=== PATIENT | female | born 1930 | race Caucasian/White ===

== ENCOUNTER 2020-06-04 16:35 | Inpatient (IN) | payer OTHER ==
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
[2020-06-04] MEDS ORDERED: HALOPERIDOL LACTATE 5 MG/ML IM ONE (18:12)
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
[2020-06-04 18:31] LABS: BASO % 0.5 % (0-2.0); EOS % 0.9 % (0-4.5); HEMATOCRIT 40.9 % (32.4-45.2); HEMOGLOBIN 14.2 GM/dL (10.7-15.3); LYMPH % 19.3 % (8-40); MCHC 34.6 g/dl (32.0-36.0); MEAN CELL VOLUME 92.5 fl (80-96); MEAN PLT VOLUME 8.7 fl (7.5-11.1); MONO % 10.2 % (3.8-10.2); NEUT % 69.1 % (42.8-82.8); PLATELET COUNT 183 K/MM3 (134-434); RBC 4.42 M/mm3 (3.60-5.2); RDW 15.1 % (11.6-15.6)
[2020-06-04 18:39] LABS: ALBUMIN 3.8 g/dl (3.4-5.0); BILIRUBIN,TOTAL 2.2 mg/dL (0.2-1); BLOOD UREA NITROGEN 28.6 mg/dL (7-18); CALCIUM 11.1 mg/dL (8.5-10.1); CREATININE 1.1 mg/dL (0.55-1.3); POTASSIUM 3.8 mmol/L (3.5-5.1); TOT PROT 7.5 g/dl (6.4-8.2)
[2020-06-04 18:52] LABS: EPI CELLS 4 /uL (0-25.1); HYALINE CASTS 0 /uL (0-3.1); PH,URINE 5.5 (5.0-8.0); URINE APPEARANCE CLEAR; URINE BILIRUBIN NEGATIVE (NEGATIVE); URINE COLOR YELLOW; URINE GLUCOSE (UA) NEGATIVE (NEGATIVE); URINE KETONE NEGATIVE (NEGATIVE); URINE LEUK ESTERASE TRACE (NEGATIVE); URINE NITRITE NEGATIVE (NEGATIVE); URINE PROTEIN 2+ (NEGATIVE); URINE RBC 5 /uL (0-23.9); URINE WBC 11 /uL (0-25.8)
[2020-06-04] MEDS ORDERED: CEFTRIAXONE 1,000 MG in DEXTROSE 5%-WATER - 50 ML IVPB ONE (18:52)
[2020-06-04] MEDS ORDERED: CEFTRIAXONE 1 GM/50 ML BAG ONE (18:55)
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
[2020-06-04] MEDS ORDERED: SODIUM CHLORIDE 1,000 ML IV SCH (20:45)
[2020-06-04 21:11] LABS: BILIRUBIN,DIRECT 0.4 mg/dL (0.0-0.2)
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
[2020-06-04] MEDS: MEMANTINE HCL 5 MG TABLET (UD) PO SCH (22:08)
[2020-06-04] MEDS: hydrALAZINE HCL 10 MG TABLET PO SCH (22:08)
[2020-06-04] MEDS: amLODIPine BESYLATE 10 MG TABLET (FP) PO SCH (22:08)
[2020-06-05] MEDS ORDERED: LEVOTHYROXINE NA 112 MCG TABLET (FP) PO SCH (07:00)
[2020-06-05 07:14] LABS: HEMATOCRIT 40.2 % (32.4-45.2); MCH 32.2 pg (25.7-33.7); MCHC 34.8 g/dl (32.0-36.0); MEAN CELL VOLUME 92.7 fl (80-96); MEAN PLT VOLUME 8.5 fl (7.5-11.1); PLATELET COUNT 172 K/MM3 (134-434); RBC 4.34 M/mm3 (3.60-5.2); RDW 14.8 % (11.6-15.6); WHITE BLOOD COUNT 5.5 K/mm3 (4.0-10.0)
[2020-06-05 07:47] LABS: ALBUMIN 3.3 g/dl (3.4-5.0); BILIRUBIN,TOTAL 1.8 mg/dL (0.2-1); BLOOD UREA NITROGEN 22.6 mg/dL (7-18); CALCIUM 10.3 mg/dL (8.5-10.1); CREATININE 0.9 mg/dL (0.55-1.3); PHOSPHOROUS 2.9 mg/dL (2.5-4.9); POTASSIUM 3.6 mmol/L (3.5-5.1); TOT PROT 6.8 g/dl (6.4-8.2)
[2020-06-05] MEDS ORDERED: cefTRIAXone SODIUM 1 GM VIAL ONE (10:00)
[2020-06-05] MEDS ORDERED: DEXTROSE 5%-WATER - 50 ML IVPB ONE (10:00)
--- NOTE | 2020-06-05 10:04 | EKG ---
Test Reason : Blood Pressure : / mmHG Vent. Rate : 084 BPM Atrial Rate : 082 BPM P-R Int : 000 ms QRS Dur : 088 ms QT Int : 366 ms P-R-T Axes : 000 -12 003 degrees QTc Int : 432 ms ATRIAL FIBRILLATION WITH PREMATURE VENTRICULAR OR ABERRANTLY CONDUCTED COMPLEXES CANNOT RULE OUT ANTEROSEPTAL INFARCT , AGE UNDETERMINED NONSPECIFIC ST ABNORMALITY ABNORMAL ECG Confirmed by MD TRACY, PALMER ([id number]) on 06/05/2020 10:04:01 AM Referred By: Confirmed By:PALMER MOLINA MD
[2020-06-05] MEDS: ENOXAPARIN NA (PORCINE) 40 MG/0.4 ML DISP.SYRIN SQ SCH (10:21)
[2020-06-05] MEDS: POTASSIUM CHLORIDE TABS 10 MEQ TABLET.ER (FP) PO SCH (10:22)
[2020-06-05] MEDS: amLODIPine BESYLATE 10 MG TABLET (FP) PO SCH (10:22)
--- NOTE | 2020-06-05 10:53 | EKG ---
Test Reason : Blood Pressure : / mmHG Vent. Rate : 057 BPM Atrial Rate : 063 BPM P-R Int : 000 ms QRS Dur : 090 ms QT Int : 442 ms P-R-T Axes : 000 -19 021 degrees QTc Int : 430 ms ATRIAL FIBRILLATION WITH SLOW VENTRICULAR RESPONSE LEFTWARD AXIS SEPTAL INFARCT (CITED ON OR BEFORE 04-JUN-2020) NONSPECIFIC ST ABNORMALITY ABNORMAL ECG Confirmed by MD TRACY, PALMER ([id number]) on 06/05/2020 10:53:19 AM Referred By: Kylee ROSAS Confirmed By:PALMER MOLINA MD
[2020-06-05 11:41] LABS: N-TERMINAL BNP 3642.7 pg/ml (5-450)
[2020-06-05 12:22] LABS: COCAINE, UR NEGATIVE ng/ml (CUTOFF=300); METHADONE, UR NEGATIVE ng/ml (CUTOFF=300); OPIATES, URI NEGATIVE ng/ml (CUTOFF=300); PHENCYCLIDINE,URINE NEGATIVE ng/ml (CUTOFF=25); URINE AMPHETAMINES NEGATIVE ng/ml (CUTOFF=500); URINE BARBITURATES NEGATIVE ng/ml (CUTOFF=200); URINE BENZODIAZEPINES NEGATIVE ng/ml (CUTOFF=200)
[2020-06-05] MEDS ORDERED: PT OWN MED DRAWER 7, Y5N ONE ×2 (12:33→20:38)
[2020-06-05] MEDS: CEFTRIAXONE 1 GM in DEXTROSE 5%-WATER - 50 ML IVPB SCH (12:37)
[2020-06-05] MEDS: hydrALAZINE HCL 10 MG TABLET PO SCH ×2 (12:37→21:11)
--- NOTE | 2020-06-05 12:52 | ECHO ---
Version: 1 Name: JOSE ELIAS BHATTI Exam: Adult Echocardiogram Study Date: 06/05/2020, 11:41 AM Age: 89 Years MMode/2D Measurements & Calculations IVSd: 1.19 cm LVIDs: 2.48 cm LVIDd: 3.9 cm LVPWd: 1.04 cm LAV (MOD-bp): 84.0 ml LVOT diam: 1.98 cm Ao root diam: 3.0 cm LA dimension: 4.6 cm Doppler Measurements & Calculations Lat Peak E' Ross: 8.3 cm/sec Med Peak E' Ross: 6.0 cm/sec MR max P.0 mmHg Ao max P.8 mmHg Ao V2 max: 98.0 cm/sec AI P1/2t: 568.3 msec PI end-d ross: 119.4 cm/sec TR max ross: 327.6 cm/sec TR max P.0 mmHg Left Ventricle There is mild concentric left ventricular hypertrophy. Left ventricular systolic function is grossly normal. Ejection Fraction = 55%. The transmitral spectral Doppler flow pattern is suggestive of impaired LV relaxation. Right Ventricle Borderline right ventricular enlargement. The right ventricular systolic function is normal. Atria The left atrium is moderately dilated. The right atrium is moderately dilated. Mitral Valve There is mild mitral valve thickening. There is moderate mitral regurgitation. Tricuspid Valve The tricuspid valve is not well visualized, but is grossly normal. There is moderate to severe tricu spid regurgitation. Right ventricular systolic pressure is elevated at 50-60mmHg. There is moderate pulmo nary hypertension. Aortic Valve There is moderate aortic valve thickening. No hemodynamically significant valvular aortic stenosis. Mild to moderate aortic regurgitation. Pulmonic Valve The pulmonic valve is not well visualized. Great Vessels The aortic root is normal size. Pericardium/Pleura There is no pericardial effusion. Summary Statements There is mild concentric left ventricular hypertrophy. Left ventricular systolic function is grossly normal. Ejection Fraction = 55%. Borderline right ventricular enlargement. The right ventricular systolic function is normal. The left atrium is moderately dilated. The right atrium is moderately dilated. There is mild mitral valve thickening. There is moderate mitral regurgitation. There is moderate aortic valve thickening. Mild to moderate aortic regurgitation. The tricuspid valve is not well visualized, but is grossly normal. There is moderate to severe tricu spid regurgitation. There is moderate pulmonary hypertension. Right ventricular systolic pressure is elevated at 50-60mm Hg. MD Krista Mccoy06/05/2020, 12:52 PM Ordering Physician: Liban Gamino Performed By: Melissa Arguello
[2020-06-05] MEDS ORDERED: HALOPERIDOL 2 MG TABLET PO ONE (15:00)
--- NOTE | 2020-06-05 15:13 | CON.PSY ---
Psychiatry Consult Chief Complaint: 89 year old female with Dementia Alz admitted with AMS and for? COVID. Patient seen chin barnes agitation, getting out opf Bed and wants to go HOMe. Symptoms: reports: Memory Impairment, Restlessness, Impulsivity - Previous Psychiatric Treatment Outpatient: None Inpatient: None - Previous Substance Abuse Treatment Outpatient: None Inpatient: None - Current Medications Current Medications: Active Medications Amlodipine Besylate (Norvasc -) 10 mg PO DAILY [facility] Last Admin: 06/05/20 10:22 Dose: 10 mg Documented by: Enoxaparin Sodium (Lovenox -) 40 mg SQ DAILY [facility] Last Admin: 06/05/20 10:21 Dose: 40 mg Documented by: Hydralazine HCl (Apresoline -) 10 mg PO BID [facility] Last Admin: 06/05/20 12:37 Dose: 10 mg Documented by: Ceftriaxone Sodium 1 gm/ (Dextrose) 50 mls @ 100 mls/hr IVPB DAILY [facility]; Protocol Last Admin: 06/05/20 12:37 Dose: 100 mls/hr Documented by: Levothyroxine Sodium (Synthroid -) 112 mcg PO DAILY@0700 [facility] Last Admin: 06/05/20 06:08 Dose: 112 mcg Documented by: Memantine (Namenda -) 5 mg PO HS [facility] Last Admin: 06/04/20 22:08 Dose: 5 mg Documented by: Metoprolol Succinate (Toprol Xl -) 50 mg PO BID [facility] Last Admin: 06/05/20 10:22 Dose: 50 mg Documented by: Potassium Chloride (K-Dur -) 10 meq PO DAILY [facility] Last Admin: 06/05/20 10:22 Dose: 10 meq Documented by: - Allergies Allergies: Allergies Allergy/AdvReac Type Severity Reaction Status Date / Time No Known Allergies Allergy Verified 06/04/20 18:34 - Current Living Status Usual Living Arrangement: With Significant Other - Current Mental Status Evaluation Appearance: Disheveled Attitude: Guarded - Affect Affect: Constrictive Appropriateness: Not Appropriate - Mood Mood: Irritable - Speech/Language Expressive: Delayed - Psychomotor Activity Psychomotor Activity: Hyperactive - Thought Process Thought Process: Circumstantial - Thought Content Hallucinations: Absent Delusions: Absent - Self Perception Self Perception: Depersonalization - Cognition Attention: Diminished Memory, Immediate Recall: Impaired Memory, Remote: Impaired - Concentration Serial Sevens Intact: No Simple Calculations Intact: No - Abstraction Proverb Interpretation: Impaired Judgement: Moderately Impaired - Insight Insight: Impaired - Impulse Control Impulse Control: Moderately Impaired - Suicidal Ideation Suicidal Ideation: No - Homicidal Ideation Homicidal Ideation: No Assessment/Plan 1) zyprexa2.5 mg po bid for agitation and aggression.
[2020-06-05] MEDS ORDERED: OLANZapine 2.5 MG TABLET PO ONE (16:45)
--- NOTE | 2020-06-05 17:56 | PN ---
Teaching Attending Note Name of Resident: Liban Gamino ATTENDING PHYSICIAN STATEMENT I saw and evaluated the patient. I reviewed the resident's note and discussed the case with the resident. I agree with the resident's findings and plan as documented. SUBJECTIVE: No complaints. OBJECTIVE: Afebrile, Hemodynamically Stable. AAO x 1. Last Vital Signs Temp Pulse Resp BP Pulse Ox 99.4 F 72 20 142/68 97 06/05/20 17:02 06/05/20 17:02 06/05/20 17:02 06/05/20 17:02 06/05/20 09:00 HEENT - Atraumatic, normocephalic. Heart - S1, S2, irregular. lungs - clear to auscultation Abdomen - Soft, non-tender. Bowel Sounds normal Extremities - no edema, no calf tenderness Neuro - AAO x 1. Moving all 4 extremities. Laboratory Results - last 24 hr 06/04/20 06/04/20 06/04/20 17:43 17:43 17:43 WBC 6.0 RBC 4.42 Hgb 14.2 Hct 40.9 MCV 92.5 MCH 32.0 MCHC 34.6 RDW 15.1 Plt Count 183 MPV 8.7 Absolute Neuts (auto) 4.2 Neutrophils % 69.1 Lymphocytes % 19.3 Monocytes % 10.2 Eosinophils % 0.9 Basophils % 0.5 Nucleated RBC % 0 Sodium 142 Potassium 3.8 Chloride 111 H Carbon Dioxide 21 Anion Gap 10 BUN 28.6 H Creatinine 1.1 Est GFR (CKD-EPI)AfAm 51.55 Est GFR (CKD-EPI)NonAf 44.48 Random Glucose 96 Calcium 11.1 H Phosphorus Magnesium Total Bilirubin 2.2 H Direct Bilirubin 0.4 H AST 27 ALT 16 Alkaline Phosphatase 145 H Creatine Kinase 110 Troponin I < 0.02 B-Natriuretic Peptide Total Protein 7.5 Albumin 3.8 Vitamin B12 TSH 28.90 H Free T4 1.28 Thyroxine (T4) Urine Color Urine Appearance Urine pH Ur Specific [place] Urine Protein Urine Glucose (UA) Urine Ketones Urine Blood Urine Nitrite Urine Bilirubin Urine Urobilinogen Ur Leukocyte Esterase Urine WBC (Auto) Urine RBC (Auto) Urine Casts (Auto) U Epithel Cells (Auto) Urine Bacteria (Auto) Ur Random Creatinine U Random Total Protein Protein/Creatinin Ratio Opiates Screen Methadone Screen Barbiturate Screen Phencyclidine Screen Ur Amphetamines Screen MDMA (Ecstasy) Screen Benzodiazepines Screen Cocaine Screen U Marijuana (THC) Screen 06/04/20 06/05/20 06/05/20 18:30 06:42 06:42 WBC 5.5 RBC 4.34 Hgb 14.0 Hct 40.2 MCV 92.7 MCH 32.2 MCHC 34.8 RDW 14.8 Plt Count 172 MPV 8.5 Absolute Neuts (auto) Neutrophils % Lymphocytes % Monocytes % Eosinophils % Basophils % Nucleated RBC % Sodium 143 Potassium 3.6 Chloride 114 H Carbon Dioxide 21 Anion Gap 9 BUN 22.6 H Creatinine 0.9 Est GFR (CKD-EPI)AfAm 65.70 Est GFR (CKD-EPI)NonAf 56.69 Random Glucose 92 Calcium 10.3 H Phosphorus 2.9 Magnesium 2.0 Total Bilirubin 1.8 H Direct Bilirubin AST 25 ALT 15 Alkaline Phosphatase 137 H Creatine Kinase Troponin I B-Natriuretic Peptide 3642.7 H Total Protein 6.8 Albumin 3.3 L Vitamin B12 482 TSH 52.30 H Free T4 Thyroxine (T4) 11.2 Urine Color Yellow Urine Appearance Clear Urine pH 5.5 Ur Specific [place] 1.012 Urine Protein 2+ H Urine Glucose (UA) Negative Urine Ketones Negative Urine Blood Negative Urine Nitrite Negative Urine Bilirubin Negative Urine Urobilinogen 1.0 Ur Leukocyte Esterase Trace Urine WBC (Auto) 11 Urine RBC (Auto) 5 Urine Casts (Auto) 0 U Epithel Cells (Auto) 4 Urine Bacteria (Auto) >10,000 Ur Random Creatinine U Random Total Protein Protein/Creatinin Ratio Opiates Screen Methadone Screen Barbiturate Screen Phencyclidine Screen Ur Amphetamines Screen MDMA (Ecstasy) Screen Benzodiazepines Screen Cocaine Screen U Marijuana (THC) Screen 06/05/20 06/05/20 10:25 10:25 WBC RBC Hgb Hct MCV MCH MCHC RDW Plt Count MPV Absolute Neuts (auto) Neutrophils % Lymphocytes % Monocytes % Eosinophils % Basophils % Nucleated RBC % Sodium Potassium Chloride Carbon Dioxide Anion Gap BUN Creatinine Est GFR (CKD-EPI)AfAm Est GFR (CKD-EPI)NonAf Random Glucose Calcium Phosphorus Magnesium Total Bilirubin Direct Bilirubin AST ALT Alkaline Phosphatase Creatine Kinase Troponin I B-Natriuretic Peptide Total Protein Albumin Vitamin B12 TSH Free T4 Thyroxine (T4) Urine Color Urine Appearance Urine pH Ur Specific [place] Urine Protein Urine Glucose (UA) Urine Ketones Urine Blood Urine Nitrite Urine Bilirubin Urine Urobilinogen Ur Leukocyte Esterase Urine WBC (Auto) Urine RBC (Auto) Urine Casts (Auto) U Epithel Cells (Auto) Urine Bacteria (Auto) Ur Random Creatinine 14.0 L U Random Total Protein 29.2 H Protein/Creatinin Ratio 2.1 Opiates Screen Negative Methadone Screen Negative Barbiturate Screen Negative Phencyclidine Screen Negative Ur Amphetamines Screen Negative MDMA (Ecstasy) Screen Negative Benzodiazepines Screen Negative Cocaine Screen Negative U Marijuana (THC) Screen Negative Current Medications Generic Name Dose Route Start Last Admin Trade Name Freq PRN Reason Stop Dose Admin Amlodipine Besylate 10 mg 06/04/20 20:45 06/05/20 10:22 Norvasc - PO 10 mg DAILY DENISE Administration Enoxaparin Sodium 40 mg 06/05/20 10:00 06/05/20 10:21 Lovenox - SQ 40 mg DAILY DENISE Administration Hydralazine HCl 10 mg 06/04/20 22:00 06/05/20 12:37 Apresoline - PO 10 mg BID DENISE Administration Ceftriaxone Sodium 1 gm/ 50 mls @ 100 mls/hr 06/05/20 10:00 06/05/20 12:37 Dextrose IVPB 100 mls/hr DAILY DENISE Administration Protocol Levothyroxine Sodium 125 mcg 06/05/20 17:49 Synthroid - PO DAILY@0700 DENISE Memantine 5 mg 06/04/20 22:00 06/04/20 22:08 Namenda - PO 5 mg HS DENISE Administration Metoprolol Succinate 50 mg 06/04/20 22:00 06/05/20 10:22 Toprol Xl - PO 50 mg BID DENISE Administration Olanzapine 2.5 mg 06/05/20 22:00 Zyprexa - PO BID DENISE Potassium Chloride 10 meq 06/05/20 10:00 06/05/20 10:22 K-Dur - PO 10 meq DAILY DENISE Administration Home Medications Medication Instructions Recorded Amlodipine Besylate 10 mg PO DAILY 06/04/20 Hydralazine HCl 10 mg PO BID 06/04/20 Levothyroxine [Synthroid -] 112 mcg PO DAILY 06/04/20 Memantine HCl 5 mg PO HS 06/04/20 Metoprolol Succinate 50 mg PO BID 06/04/20 Potassium Chloride 10 meq PO DAILY 06/04/20 ASSESSMENT AND PLAN: 89 year old female with a history of Atrial Fibrillation, HTN, Hypothyroidism, Dementia, brought to ED by family members with increasing confusion, aggression, falls. 1. Acute Metabolic Encephalopathy atop baseline Dementia with behavioral disturbance ?progression of her Dementia vs UTI. Required Haldol on admission. Empirically treated for UTI with Ceftriaxone pending Urine Cx result. IV hydration stopped, eating/drinking adequately. Evaluated by Psychiatry - started on Zyprexa. Namenda resumed. 2. Hypothyrosidism - TSH 52 ?compliance with Synthroid. Collateral history from family members required. 3. HTN - Continue Norvasc, Hydralazine, Toprol XL 4. Atrial fibrillation, rate controlled. Continue Toprol XL. Not on AC secondary to falls. 5. Cardiomegaly and increased bilateral interstitial markings. BNP elevated at 3642. Clinically no evidence of decompensated CHF. Echo and Cardio consult requested for medication optimization. 6. Cerebrovascular Disease - Chronic Infarcts on CT Head. No evidence of acute infarct or focal neurological signs. Will start Aspirin. Will hold off Statin due to advanced age, underlying dementia, and muscle weakness/recurrent falls. DVT Px - Lovenox SQ.
[2020-06-05] MEDS ORDERED: LORazepam 2 MG/ML SDV VIAL IM ONE (18:15)
[2020-06-05] MEDS ORDERED: LORazepam 2 MG/ML SDV VIAL IM PRN (18:15)
--- NOTE | 2020-06-05 19:42 | PN ---
Physical Exam: SUBJECTIVE: Patient seen and examined at bedside in the morning. The patient was A&O x 0 and confused, talking about spaghetti, and when examined a little later was A&O x 1 (only to place) and still confused. The patient's nephew, Mike Kong, was contacted at , and her medications was rechecked. The nephew explains that the patient takes her mediations regularly, only missing a dose once or twice a week. Due to her symptoms, the family held the patient's Memantine for a week as they thought that it was causing her altered mental status. OBJECTIVE: Vital Signs Period Temp Pulse Resp BP Sys/Gaona Pulse Ox Last 24 Hr 97.3 F-99.4 F 60-88 20-20 138-163/68-93 97-98 GENERAL: The patient is A&Ox0 and confused, in no acute distress. HEAD: Normal with no signs of trauma. EYES: Extraocular movements intact. No ptosis. ENT: Ears normal, nares patent, oropharynx clear without exudates, moist mucous membranes. NECK: Trachea midline, full range of motion, supple. LUNGS: Breath sounds equal, clear to auscultation bilaterally, no wheezes, no crackles, no accessory muscle use. HEART: Irregular rhythm. S1, S2. ABDOMEN: Soft, nontender, nondistended, normoactive bowel sounds, no guarding, no rebound, no masses. EXTREMITIES: 2+ pulses, warm, well-perfused, no edema. NEUROLOGICAL: Normal speech, gait not observed. PSYCH: Confused. SKIN: Warm, dry, normal turgor, no rashes or lesions noted Laboratory Results - last 24 hr 06/04/20 06/04/20 06/05/20 17:43 17:43 06:42 WBC 5.5 RBC 4.34 Hgb 14.0 Hct 40.2 MCV 92.7 MCH 32.2 MCHC 34.8 RDW 14.8 Plt Count 172 MPV 8.5 Sodium 142 Potassium 3.8 Chloride 111 H Carbon Dioxide 21 Anion Gap 10 BUN 28.6 H Creatinine 1.1 Est GFR (CKD-EPI)AfAm 51.55 Est GFR (CKD-EPI)NonAf 44.48 Random Glucose 96 Calcium 11.1 H Phosphorus Magnesium Total Bilirubin 2.2 H Direct Bilirubin 0.4 H AST 27 ALT 16 Alkaline Phosphatase 145 H Creatine Kinase 110 Troponin I < 0.02 B-Natriuretic Peptide Total Protein 7.5 Albumin 3.8 Vitamin B12 TSH 28.90 H Free T4 1.28 Thyroxine (T4) Ur Random Creatinine U Random Total Protein Protein/Creatinin Ratio Opiates Screen Methadone Screen Barbiturate Screen Phencyclidine Screen Ur Amphetamines Screen MDMA (Ecstasy) Screen Benzodiazepines Screen Cocaine Screen U Marijuana (THC) Screen 06/05/20 06/05/20 06/05/20 06:42 10:25 10:25 WBC RBC Hgb Hct MCV MCH MCHC RDW Plt Count MPV Sodium 143 Potassium 3.6 Chloride 114 H Carbon Dioxide 21 Anion Gap 9 BUN 22.6 H Creatinine 0.9 Est GFR (CKD-EPI)AfAm 65.70 Est GFR (CKD-EPI)NonAf 56.69 Random Glucose 92 Calcium 10.3 H Phosphorus 2.9 Magnesium 2.0 Total Bilirubin 1.8 H Direct Bilirubin AST 25 ALT 15 Alkaline Phosphatase 137 H Creatine Kinase Troponin I B-Natriuretic Peptide 3642.7 H Total Protein 6.8 Albumin 3.3 L Vitamin B12 482 TSH 52.30 H Free T4 Thyroxine (T4) 11.2 Ur Random Creatinine 14.0 L U Random Total Protein 29.2 H Protein/Creatinin Ratio 2.1 Opiates Screen Negative Methadone Screen Negative Barbiturate Screen Negative Phencyclidine Screen Negative Ur Amphetamines Screen Negative MDMA (Ecstasy) Screen Negative Benzodiazepines Screen Negative Cocaine Screen Negative U Marijuana (THC) Screen Negative Active Medications Generic Name Dose Route Start Last Admin Trade Name Freq PRN Reason Stop Dose Admin Amlodipine Besylate 10 mg 06/04/20 20:45 06/05/20 10:22 Norvasc - PO 10 mg DAILY DENISE Administration Aspirin 81 mg 06/06/20 10:00 Asa - PO DAILY DENISE Enoxaparin Sodium 40 mg 06/05/20 10:00 06/05/20 10:21 Lovenox - SQ 40 mg DAILY DENISE Administration Hydralazine HCl 10 mg 06/04/20 22:00 06/05/20 12:37 Apresoline - PO 10 mg BID DENISE Administration Ceftriaxone Sodium 1 gm/ 50 mls @ 100 mls/hr 06/05/20 10:00 06/05/20 12:37 Dextrose IVPB 100 mls/hr DAILY DENISE Administration Protocol Levothyroxine Sodium 125 mcg 06/05/20 17:49 Synthroid - PO DAILY@0700 DENISE Lorazepam 1 mg 06/05/20 18:15 Ativan Injection - IM Q12H PRN AGITATION Memantine 5 mg 06/04/20 22:00 06/04/20 22:08 Namenda - PO 5 mg HS DENISE Administration Metoprolol Succinate 50 mg 06/04/20 22:00 06/05/20 10:22 Toprol Xl - PO 50 mg BID DENISE Administration Olanzapine 2.5 mg 06/05/20 22:00 Zyprexa - PO BID DENISE Potassium Chloride 10 meq 06/05/20 10:00 06/05/20 10:22 K-Dur - PO 10 meq DAILY DENISE Administration ASSESSMENT/PLAN: 89 year old female patient with past medical history of AFib, Hypothyroidism, HTN, Dementia, who presented to the ED with acute metabolic encephalopathy secondary to UTI vs. Other etiology 1. Acute Metabolic Encephalopathy secondary to UTI vs. Hypothyroidism vs NPH - The patient was A&Ox0 and confused. - Urinalysis showed > 10,000 bacteria - TSH was 52.3 - The patient has a history of falls, urinary incontinence, and dementia - Toxicology negative - Psychology started the patient on Zyprexa - Chronic infarcts on CT Head. The patient is taking aspirin. 2. Hypothyroidism - TSH of 52.3 - The patient's dose of levothyroxine was increased from 112mg to 125mg 3. UTI - Urinalysis showed > 10,000 bacteria. Urine Culture pending. - The patient is taking Ceftriaxone 4. Cardiomegaly, possibly CHF - Cardiomegaly on CXR - EF is 55% from the ECHO today 5. AFib - AFib is a risk factor for cognitive decline and dementia per pubmed - ECG showed AFib - Irregular pulse on exam - The patient is taking Metoprolol 6. r/o NPH - The patient has a history of falls, urinary incontinence, and dementia - CT of the Head did not show signs of NPH 7. HTN - The patient is taking Hydralazine, Amlodipine, and Metoprolol - The patient's blood pressure has been 152-138 systolic / 80 - 68 diastolic # FEN - The patient is on a Low Sodium Diet. Monitoring Electrolytes. DVT Px - Lovenox Sq Visit type - Emergency Visit Emergency Visit: Yes ED Registration Date: 06/04/20 Care time: The patient presented to the Emergency Department on the above date and was hospitalized for further evaluation of their emergent condition. - New Patient This patient is new to me today: Yes Date on this admission: 06/05/20 - Critical Care Critical Care patient: No - Discharge Referral Referred to [facility] Med P.C.: No ATTENDING PHYSICIAN STATEMENT I saw and evaluated the patient. I reviewed the resident's note and discussed the case with the resident. I agree with the resident's findings and plan as documented. SUBJECTIVE: OBJECTIVE: ASSESSMENT AND PLAN:
[2020-06-05] MEDS: OLANZapine 2.5 MG TABLET PO SCH (21:11)
[2020-06-05] MEDS: MEMANTINE HCL 5 MG TABLET (UD) PO SCH (21:11)
[2020-06-06] MEDS: LEVOTHYROXINE NA 125 MCG TABLET (FP) PO SCH (06:17)
[2020-06-06 07:18] LABS: HEMATOCRIT 43.9 % (32.4-45.2); HEMOGLOBIN 14.9 GM/dL (10.7-15.3); MCH 31.5 pg (25.7-33.7); MEAN CELL VOLUME 92.6 fl (80-96); MEAN PLT VOLUME 8.3 fl (7.5-11.1); PLATELET COUNT 209 K/MM3 (134-434); RBC 4.74 M/mm3 (3.60-5.2); RDW 15.1 % (11.6-15.6); WHITE BLOOD COUNT 6.9 K/mm3 (4.0-10.0)
[2020-06-06 07:46] LABS: BLOOD UREA NITROGEN 23.1 mg/dL (7-18); CREATININE 1.1 mg/dL (0.55-1.3); MAGNESIUM 2.3 mg/dL (1.8-2.4); PHOSPHOROUS 2.9 mg/dL (2.5-4.9); POTASSIUM 3.4 mmol/L (3.5-5.1)
--- NOTE | 2020-06-06 09:06 | CON.CARD ---
Consult Consult Specialty:: Cardiology Referred by:: Rogelio Reason for Consultation:: Atrial fibrillation. Mild pulmonary congestion. - History of Present Illness Chief Complaint: Mental status changes History of Present Illness: The patient is an 89-year-old female with significant dementia, hypertension, hyperlipidemia, chronic atrial fibrillation, now admitted with mental status changes and likely urinary tract infection on antibiotics. The patient is confused. Unable to hold a conversation. Not following commands. She is in no apparent distress. 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 Cardio/Vascular: Yes: AFIB, CHF, HTN - Smoking History Smoking history: Unknown if ever smoked - Social History Usual Living Arrangement: With Significant Other Home Medications - Allergies Allergies/Adverse Reactions: Allergies Allergy/AdvReac Type Severity Reaction Status Date / Time No Known Allergies Allergy Verified 06/04/20 18:34 - Home Medications Home Medications: Ambulatory Orders Amlodipine Besylate 10 mg PO DAILY 06/04/20 Hydralazine HCl 10 mg PO BID 06/04/20 Levothyroxine [Synthroid -] 112 mcg PO DAILY 06/04/20 Memantine HCl 5 mg PO HS 06/04/20 Metoprolol Succinate 50 mg PO BID 06/04/20 Potassium Chloride 10 meq PO DAILY 06/04/20 Review of Systems - Review of Systems Constitutional: reports: No Symptoms Eyes: reports: No Symptoms HENT: reports: No Symptoms Neck: reports: No Symptoms Cardiovascular: reports: No Symptoms Respiratory: reports: No Symptoms Gastrointestinal: reports: No Symptoms Genitourinary: reports: Dysuria Breasts: reports: No Symptoms Reported Musculoskeletal: reports: No Symptoms Integumentary: reports: No Symptoms Neurological: reports: Change in LOC, Confusion Endocrine: reports: No Symptoms Hematology/Lymphatic: reports: No Symptoms Psychiatric: reports: No Symptoms Vital Signs: Vital Signs Temperature 97.4 F L 06/06/20 06:00 Pulse Rate 65 06/05/20 19:32 Respiratory Rate 06/06/20 06:00 Blood Pressure 140/101 H 06/06/20 06:00 O2 Sat by Pulse Oximetry (%) 97 06/05/20 20:10 Constitutional: Yes: Well Nourished, No Distress, Calm Eyes: Yes: Conjunctiva Clear HENT: Yes: Atraumatic, Normocephalic Neck: Yes: Supple, Trachea Midline Respiratory: Yes: Regular, CTA Bilaterally Gastrointestinal: Yes: Normal Bowel Sounds, Soft Cardiovascular: Yes: Pulse Irregular JVD: No Carotid Bruit: No PMI: Non-Displaced Heart Sounds: Yes: S1, S2 Murmur: Yes: Systolic Murmur, Grade 2 Edema: No Peripheral Pulses: 1+ Left Carotid, 1+ Right Carotid, 1+ Left Femoral, 1+ Right Femoral, 1+ Left Popliteal, 1+ Right Popliteal, 1+ Left Doralis Pedis, 1+ Right Dorsalis Pedis Neurological: Yes: Alert Psychiatric: Yes: Alert - Other Data Labs, Other Data: CBC, BMP 06/06/20 06:25 06/06/20 06:25 Troponin, BNP 06/05/20 06:42 B-Natriuretic Peptide 3642.7 H Troponin, BNP 06/05/20 06:42 B-Natriuretic Peptide 3642.7 H Assessment/Plan The patient is an 89-year-old female with significant dementia, hypertension, hyperlipidemia, chronic atrial fibrillation, now admitted with mental status changes and likely urinary tract infection on antibiotics. The patient is confused. Unable to hold a conversation. Not following commands. She is in no apparent distress. The patient's echocardiogram showed that both ventricles are functioning normally. There was moderate left atrial dilatation with moderate mitral and tricuspid valve regurgitation. Mild to moderate aortic valve regurgitation. Ventricular rates are well controlled in atrial fibrillation. Minimal pulmonary congestion on x-ray. The patient is breathing quite comfortably. There is no need for further cardiac work-up at this point. No need for cardiac monitoring. Consider anticoagulation for atrial fibrillation unless the risks outweighs the benefits in this situation. Please do not hesitate to call us PRN.
[2020-06-06] MEDS ORDERED: cefTRIAXone SODIUM 1 GM VIAL ONE (09:08)
[2020-06-06] MEDS ORDERED: DEXTROSE 5%-WATER - 50 ML IVPB ONE (09:08)
[2020-06-06] MEDS: ENOXAPARIN NA (PORCINE) 40 MG/0.4 ML DISP.SYRIN SQ SCH (09:14)
[2020-06-06] MEDS: CEFTRIAXONE 1 GM in DEXTROSE 5%-WATER - 50 ML IVPB SCH (09:14)
[2020-06-06] MEDS ORDERED: POTASSIUM CHLORIDE TABS 20 MEQ TABLET.ER (FP) PO ONE (09:30)
[2020-06-06] MEDS ORDERED: HALOPERIDOL LACTATE 5 MG/ML IM ONE ×2 (10:08→14:30)
[2020-06-06] MEDS: amLODIPine BESYLATE 10 MG TABLET (FP) PO SCH (10:23)
[2020-06-06] MEDS: OLANZapine 2.5 MG TABLET PO SCH ×2 (10:23→22:06)
[2020-06-06] MEDS: ASPIRIN 81 MG CHEWABLE TABLETS PO SCH (10:23)
[2020-06-06] MEDS: hydrALAZINE HCL 10 MG TABLET PO SCH ×2 (10:27→22:07)
[2020-06-06] MEDS ORDERED: PT OWN MED DRAWER 7, Y5N ONE ×2 (10:27→22:05)
[2020-06-06] MEDS: POTASSIUM CHLORIDE TABS 10 MEQ TABLET.ER (FP) PO SCH (10:28)
--- NOTE | 2020-06-06 11:30 | PN ---
Progress Note (short form) - Note Progress Note: Patient seen for Psych follow up; Sleepy this morning. Psych meds are being effective.. REC: Please do not use Haldol IM to manAGE AGIATION WHICH CAN LEAD TO SEVERE eps. uSE ATIVAN NEEDED. 2) [id number] WIH zYPREXA 2.5 MG PO BID STANDING.
[2020-06-06] MEDS: AZITHROMYCIN 1% OPHTH SOLN 1 BOTTLE OS SCH ×2 (12:10→22:08)
[2020-06-06 12:47] VITALS: BMI 19.5
--- NOTE | 2020-06-06 13:24 | CONSULT ---
Consult Consult Specialty:: Nephrology Reason for Consultation:: hypercalcemia - History of Present Illness Chief Complaint: aggitation History of Present Illness: Pt is an 89 year old female with pmhx of a-fib, hypothyroidism, htn, dementia who presented with agitation. Pts aggressive behavior has been worsening. She is currently lethargic and unable to give history. I was called to evaluate her for hypecalcemia. She has not been compliant with her meds. Her po intake has been poor. I reviewed the chart. 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 Cardio/Vascular: Yes: AFIB, CHF, HTN - Smoking History Smoking history: Unknown if ever smoked - Social History Usual Living Arrangement: With Significant Other Home Medications - Allergies Allergies/Adverse Reactions: Allergies Allergy/AdvReac Type Severity Reaction Status Date / Time No Known Allergies Allergy Verified 06/04/20 18:34 - Home Medications Home Medications: Ambulatory Orders Amlodipine Besylate 10 mg PO DAILY 06/04/20 Hydralazine HCl 10 mg PO BID 06/04/20 Levothyroxine [Synthroid -] 112 mcg PO DAILY 06/04/20 Memantine HCl 5 mg PO HS 06/04/20 Metoprolol Succinate 50 mg PO BID 06/04/20 Potassium Chloride 10 meq PO DAILY 06/04/20 Family Medical History Family History: Unable to Obtain, Denies Review of Systems Unable to obtain ROS, reason: lethargy Physical Exam Vital Signs: Vital Signs Temperature 97.9 F 06/06/20 10:00 Pulse Rate 72 06/06/20 10:00 Respiratory Rate 18 06/06/20 10:00 Blood Pressure 160/71 06/06/20 10:00 O2 Sat by Pulse Oximetry (%) 97 06/06/20 10:00 Constitutional: Yes: Calm Eyes: Yes: Conjunctiva Clear HENT: Yes: Atraumatic Neck: Yes: Supple Cardiovascular: Yes: S1, S2 Respiratory: Yes: CTA Bilaterally Gastrointestinal: Yes: Soft Renal/: Yes: Incontinence Musculoskeletal: Yes: Muscle Weakness Edema: No Neurological: Yes: Lethargy Labs: CBC, BMP 06/06/20 06:25 06/06/20 06:25 Imaging - Results Cat Scan: Report Reviewed Problem List - Problems (1) Hypercalcemia Code(s): E83.52 - HYPERCALCEMIA (2) AMS (altered mental status) Code(s): R41.82 - ALTERED MENTAL STATUS, UNSPECIFIED Qualifiers: Altered mental status type: unspecified Qualified Code(s): R41.82 - Altered mental status, unspecified (3) Dementia Code(s): F03.90 - UNSPECIFIED DEMENTIA WITHOUT BEHAVIORAL DISTURBANCE (4) UTI (urinary tract infection) Code(s): N39.0 - URINARY TRACT INFECTION, SITE NOT SPECIFIED Qualifiers: Urinary tract infection type: site unspecified Hematuria presence: without hematuria Qualified Code(s): N39.0 - Urinary tract infection, site not specified Assessment/Plan Current Medications Generic Name Dose Route Start Last Admin Trade Name Freq PRN Reason Stop Dose Admin Amlodipine Besylate 10 mg 06/04/20 20:45 06/06/20 10:23 Norvasc - PO 10 mg DAILY DENISE Administration Aspirin 81 mg 06/06/20 10:00 06/06/20 10:23 Asa - PO 81 mg DAILY DENISE Administration Azithromycin 1 drop 06/06/20 10:15 06/06/20 12:10 Azasite 1% Ophth Soln - OS 1 drop BID DENISE Administration Enoxaparin Sodium 40 mg 06/05/20 10:00 06/06/20 09:14 Lovenox - SQ 40 mg DAILY DENISE Administration Hydralazine HCl 10 mg 06/04/20 22:00 06/06/20 10:27 Apresoline - PO 10 mg BID DENISE Administration Ceftriaxone Sodium 1 gm/ 50 mls @ 100 mls/hr 06/05/20 10:00 06/06/20 09:14 Dextrose IVPB 100 mls/hr DAILY DENISE Administration Protocol Levothyroxine Sodium 125 mcg 06/05/20 17:49 06/06/20 06:17 Synthroid - PO 125 mcg DAILY@0700 DENISE Administration Lorazepam 1 mg 06/05/20 18:15 Ativan Injection - IM Q12H PRN AGITATION Memantine 5 mg 06/04/20 22:00 06/05/20 21:11 Namenda - PO 5 mg HS DENISE Administration Metoprolol Succinate 50 mg 06/04/20 22:00 06/06/20 10:23 Toprol Xl - PO 50 mg BID DENISE Administration Olanzapine 2.5 mg 06/05/20 22:00 06/06/20 10:23 Zyprexa - PO 2.5 mg BID DENISE Administration Potassium Chloride 10 meq 06/05/20 10:00 06/06/20 10:28 K-Dur - PO 10 meq DAILY DENISE Administration Impression 1. hypercalcemia 2. hypokalemia 3. dementia 4. hypothyroid 5. non compliance with meds 6. htn 7. a-fib Plan - start fluids - replace potassium - give lasix of she develops overload - check pth - restart synthroid - lesion seen on ct scan - check spep and light chains
[2020-06-06] MEDS: POTASSIUM CHLORIDE 10 MEQ in SODIUM CHLORIDE 0.45% 1,000 ML IVPB SCH (14:19)
--- NOTE | 2020-06-06 15:47 | PN ---
Teaching Attending Note Name of Resident: Liban Gamino ATTENDING PHYSICIAN STATEMENT I saw and evaluated the patient. I reviewed the resident's note and discussed the case with the resident. I agree with the resident's findings and plan as documented. SUBJECTIVE: No complaints. Disoriented. OBJECTIVE: Afebrile, Hemodynamically Stable. Disoriented. Unable to follow commands. Last Vital Signs Temp Pulse Resp BP Pulse Ox 98.1 F 81 18 146/74 97 06/06/20 13:56 06/06/20 13:56 06/06/20 13:56 06/06/20 13:56 06/06/20 10:00 HEENT - Atraumatic, normocephalic. L lower eyelid mild swelling/erythema Heart - S1, S2, irregular. lungs - clear to auscultation Abdomen - Soft, non-tender. Bowel Sounds normal Extremities - no edema, no calf tenderness Neuro - AAO x 0-1. Moving all 4 extremities. Laboratory Results - last 24 hr 06/04/20 06/06/20 06/06/20 19:10 06:25 06:25 WBC 6.9 RBC 4.74 Hgb 14.9 Hct 43.9 MCV 92.6 MCH 31.5 MCHC 34.0 RDW 15.1 Plt Count 209 D MPV 8.3 Sodium 143 Potassium 3.4 L Chloride 110 H Carbon Dioxide 27 Anion Gap 6 L BUN 23.1 H Creatinine 1.1 Est GFR (CKD-EPI)AfAm 51.55 Est GFR (CKD-EPI)NonAf 44.48 Random Glucose 105 Calcium 11.0 H Phosphorus 2.9 Magnesium 2.3 COVID-19 (AYLA) Not detected Current Medications Generic Name Dose Route Start Last Admin Trade Name Freq PRN Reason Stop Dose Admin Amlodipine Besylate 10 mg 06/04/20 20:45 06/06/20 10:23 Norvasc - PO 10 mg DAILY DENISE Administration Aspirin 81 mg 06/06/20 10:00 06/06/20 10:23 Asa - PO 81 mg DAILY DENISE Administration Azithromycin 1 drop 06/06/20 10:15 06/06/20 12:10 Azasite 1% Ophth Soln - OS 1 drop BID DENISE Administration Enoxaparin Sodium 40 mg 06/05/20 10:00 06/06/20 09:14 Lovenox - SQ 40 mg DAILY DENISE Administration Hydralazine HCl 10 mg 06/04/20 22:00 06/06/20 10:27 Apresoline - PO 10 mg BID DENISE Administration Ceftriaxone Sodium 1 gm/ 50 mls @ 100 mls/hr 06/05/20 10:00 06/06/20 09:14 Dextrose IVPB 100 mls/hr DAILY DENISE Administration Protocol Potassium Chloride 10 meq/ 1,005 mls @ 83 mls/hr 06/06/20 13:30 06/06/20 14:19 Sodium Chloride IVPB 83 mls/hr Q12H DENISE Administration Levothyroxine Sodium 125 mcg 06/05/20 17:49 06/06/20 06:17 Synthroid - PO 125 mcg DAILY@0700 DENISE Administration Lorazepam 1 mg 06/05/20 18:15 Ativan Injection - IM Q12H PRN AGITATION Memantine 5 mg 06/04/20 22:00 06/05/20 21:11 Namenda - PO 5 mg HS DENISE Administration Metoprolol Succinate 50 mg 06/04/20 22:00 06/06/20 10:23 Toprol Xl - PO 50 mg BID DENISE Administration Olanzapine 2.5 mg 06/05/20 22:00 06/06/20 10:23 Zyprexa - PO 2.5 mg BID DENISE Administration Potassium Chloride 10 meq 06/05/20 10:00 06/06/20 10:28 K-Dur - PO 10 meq DAILY DENISE Administration Home Medications Medication Instructions Recorded Amlodipine Besylate 10 mg PO DAILY 06/04/20 Hydralazine HCl 10 mg PO BID 06/04/20 Levothyroxine [Synthroid -] 112 mcg PO DAILY 06/04/20 Memantine HCl 5 mg PO HS 06/04/20 Metoprolol Succinate 50 mg PO BID 06/04/20 Potassium Chloride 10 meq PO DAILY 06/04/20 ASSESSMENT AND PLAN: 89 year old female with a history of Atrial Fibrillation, HTN, Hypothyroidism, Dementia, brought to ED by family members with increasing confusion, aggression, falls. 1. Acute Metabolic Encephalopathy atop baseline Dementia with behavioral disturbance secondary to UTI. Urine Cx - LFNB - Day 2 Ceftriaxone (Final ID and Sensitivity pending). Evaluated by Psychiatry - started on Zyprexa and Ativan PRN. Namenda resumed. 2. Hypothyrosidism - TSH 52. Family confirms compliance with Synthroid - dose increased to 125mcg, 3. HTN - Continue Norvasc, Hydralazine, Toprol XL 4. Atrial fibrillation, rate controlled. Continue Toprol XL. Not on AC secondary to falls. 5. Cardiomegaly and increased bilateral interstitial markings. BNP elevated at 3642. Clinically no evidence of decompensated CHF. Echo shows LVH, EF 55%, Moderate MR, Moderate AR, Moderate to Severe TR, M oderate Pulmonary HTN. Cardio evaluated and recommended no further Ix/work-up/medication modification. 6. Cerebrovascular Disease - Chronic Infarcts on CT Head. No evidence of acute infarct or focal neurological signs. Will start Aspirin. Will hold off Statin due to advanced age, underlying dementia, and muscle weakness/recurrent falls. 7. Hypercalcemia, etiology unclear. MM screen/Vitamin D levels/PTH pending. Nephrology recommends hydration. 8. Hypokalemia - repleted. 9. Blepharitis, L lower eyelid - Topical Abx/Systemic Ceftriaxone. DVT Px - Lovenox SQ.
--- NOTE | 2020-06-06 18:50 | PN ---
Physical Exam: SUBJECTIVE: Patient seen and examined at bedside. The patient is A&Ox0 and confused. She is also restless. The patient was found to have a red, swollen lower lid of her left eye today. OBJECTIVE: Vital Signs Period Temp Pulse Resp BP Sys/Gaona Pulse Ox Last 24 Hr 97.4 F-98.3 F 65-81 18-20 122-160/59-101 97-97 GENERAL: A&Ox0 with confusion. HEAD: Normal with no signs of trauma. EYES: Extraocular movements intact. No ptosis. ENT: Ears normal, nares patent, oropharynx clear without exudates, moist mucous membranes. NECK: Trachea midline, full range of motion, supple. LUNGS: Breath sounds equal, clear to auscultation bilaterally, no wheezes, no crackles, no accessory muscle use. HEART: Irregular, S1, S2. ABDOMEN: Soft, nontender, nondistended, normoactive bowel sounds, no guarding, no rebound, no masses. EXTREMITIES: 2+ pulses, warm, well-perfused, no edema. NEUROLOGICAL: Gait not observed. PSYCH: Restless. SKIN: Left lower eye lid swollen and erythematous. Laboratory Results - last 24 hr 06/04/20 06/06/20 06/06/20 19:10 06:25 06:25 WBC 6.9 RBC 4.74 Hgb 14.9 Hct 43.9 MCV 92.6 MCH 31.5 MCHC 34.0 RDW 15.1 Plt Count 209 D MPV 8.3 Sodium 143 Potassium 3.4 L Chloride 110 H Carbon Dioxide 27 Anion Gap 6 L BUN 23.1 H Creatinine 1.1 Est GFR (CKD-EPI)AfAm 51.55 Est GFR (CKD-EPI)NonAf 44.48 Random Glucose 105 Calcium 11.0 H Phosphorus 2.9 Magnesium 2.3 COVID-19 (AYLA) Not detected Active Medications Generic Name Dose Route Start Last Admin Trade Name Freq PRN Reason Stop Dose Admin Amlodipine Besylate 10 mg 06/04/20 20:45 06/06/20 10:23 Norvasc - PO 10 mg DAILY DENISE Administration Aspirin 81 mg 06/06/20 10:00 06/06/20 10:23 Asa - PO 81 mg DAILY DENISE Administration Azithromycin 1 drop 06/06/20 10:15 06/06/20 12:10 Azasite 1% Ophth Soln - OS 1 drop BID DENISE Administration Enoxaparin Sodium 40 mg 06/05/20 10:00 06/06/20 09:14 Lovenox - SQ 40 mg DAILY DENISE Administration Hydralazine HCl 10 mg 06/04/20 22:00 06/06/20 10:27 Apresoline - PO 10 mg BID DENISE Administration Ceftriaxone Sodium 1 gm/ 50 mls @ 100 mls/hr 06/05/20 10:00 06/06/20 09:14 Dextrose IVPB 100 mls/hr DAILY DENISE Administration Protocol Potassium Chloride 10 meq/ 1,005 mls @ 83 mls/hr 06/06/20 13:30 06/06/20 14:19 Sodium Chloride IVPB 83 mls/hr Q12H DENISE Administration Levothyroxine Sodium 125 mcg 06/05/20 17:49 06/06/20 06:17 Synthroid - PO 125 mcg DAILY@0700 DENISE Administration Lorazepam 1 mg 06/05/20 18:15 Ativan Injection - IM Q12H PRN AGITATION Memantine 5 mg 06/04/20 22:00 06/05/20 21:11 Namenda - PO 5 mg HS DENISE Administration Metoprolol Succinate 50 mg 06/04/20 22:00 06/06/20 10:23 Toprol Xl - PO 50 mg BID DENISE Administration Olanzapine 2.5 mg 06/05/20 22:00 06/06/20 10:23 Zyprexa - PO 2.5 mg BID DENISE Administration Potassium Chloride 10 meq 06/05/20 10:00 06/06/20 10:28 K-Dur - PO 10 meq DAILY DENISE Administration ASSESSMENT/PLAN: 89 year old female patient with past medical history of AFib, Hypothyroidism, HTN, Dementia, who presented to the ED with acute metabolic encephalopathy secondary to UTI vs. Other etiology 1. Acute Metabolic Encephalopathy secondary to UTI and/or Hypothyroidism - The patient was A&Ox0 and confused. - Urinalysis showed > 10,000 bacteria - Urine Culture show Lactose Fermenting Gram Negative Bacteria. - TSH was 52.3 - Toxicology negative - The patient is on Zyprexa per recommendation from Psych. - Chronic infarcts on CT Head. The patient is taking aspirin. 2. Hypothyroidism - TSH of 52.3 - The patient's dose of levothyroxine is 125mg 3. UTI - Urinalysis showed > 10,000 bacteria. - Urine Culture show Lactose Fermenting Gram Negative Bacteria. - The patient is taking Ceftriaxone 4. Proteinuria - +2 Protein in urine from urinalysis - Spep and light chains labs per Nephro 5. Blephritis of left lower eyelid - Left lower eyelid is erythematous and swollen - The patient is now taking Azithromycin eye drops BID 6. AFib - AFib is a risk factor for cognitive decline and dementia per pubmed - ECG from yesterday showed AFib - Irregular pulse on exam - The patient is taking Metoprolol 7. r/o NPH - The patient has a history of falls, urinary incontinence, and dementia - CT of the Head did not show signs of NPH 8. HTN - The patient is taking Hydralazine, Amlodipine, and Metoprolol - The patient's blood pressure has been 160-137 systolic / 101 - 59 diastolic # FEN - The patient is on a Low Sodium Diet - soft diet due to difficulties with chewing. Monitoring Electrolytes. DVT Px - Lovenox Sq Dispo - Waiting for Urine Culture's Final ID and Sensitivities. Monitoring the patient. Visit type - Emergency Visit Emergency Visit: Yes ED Registration Date: 06/04/20 Care time: The patient presented to the Emergency Department on the above date and was hospitalized for further evaluation of their emergent condition. - New Patient This patient is new to me today: No - Critical Care Critical Care patient: No - Discharge Referral Referred to [facility] Med [facility] No ATTENDING PHYSICIAN STATEMENT I saw and evaluated the patient. I reviewed the resident's note and discussed the case with the resident. I agree with the resident's findings and plan as documented. SUBJECTIVE: OBJECTIVE: ASSESSMENT AND PLAN:
[2020-06-06] MEDS: MEMANTINE HCL 5 MG TABLET (UD) PO SCH (22:06)
[2020-06-07] MEDS: POTASSIUM CHLORIDE 10 MEQ in SODIUM CHLORIDE 0.45% 1,000 ML IVPB SCH ×2 (03:27→14:52)
[2020-06-07] MEDS: LEVOTHYROXINE NA 125 MCG TABLET (FP) PO SCH (06:30)
[2020-06-07 07:26] LABS: HEMATOCRIT 40.9 % (32.4-45.2); MCH 31.6 pg (25.7-33.7); MCHC 34.3 g/dl (32.0-36.0); MEAN CELL VOLUME 92.2 fl (80-96); MEAN PLT VOLUME 8.4 fl (7.5-11.1); PLATELET COUNT 211 K/MM3 (134-434); RBC 4.44 M/mm3 (3.60-5.2); RDW 15.2 % (11.6-15.6)
[2020-06-07 07:53] LABS: ALBUMIN 3.5 g/dl (3.4-5.0); BILIRUBIN,TOTAL 1.7 mg/dL (0.2-1); BLOOD UREA NITROGEN 21.7 mg/dL (7-18); CALCIUM 10.9 mg/dL (8.5-10.1); MAGNESIUM 2.1 mg/dL (1.8-2.4); PHOSPHOROUS 2.9 mg/dL (2.5-4.9); POTASSIUM 4.6 mmol/L (3.5-5.1)
[2020-06-07] MEDS ORDERED: cefTRIAXone SODIUM 1 GM VIAL ONE (09:02)
[2020-06-07] MEDS ORDERED: PT OWN MED DRAWER 7, Y5N ONE ×3 (09:02→21:12)
[2020-06-07] MEDS ORDERED: DEXTROSE 5%-WATER - 50 ML IVPB ONE (09:02)
[2020-06-07] MEDS: ENOXAPARIN NA (PORCINE) 40 MG/0.4 ML DISP.SYRIN SQ SCH (09:20)
[2020-06-07] MEDS: amLODIPine BESYLATE 10 MG TABLET (FP) PO SCH (09:20)
[2020-06-07] MEDS: ASPIRIN 81 MG CHEWABLE TABLETS PO SCH (09:20)
[2020-06-07] MEDS: OLANZapine 2.5 MG TABLET PO SCH ×2 (09:20→22:09)
[2020-06-07] MEDS: hydrALAZINE HCL 10 MG TABLET PO SCH ×2 (09:21→22:09)
[2020-06-07] MEDS: POTASSIUM CHLORIDE TABS 10 MEQ TABLET.ER (FP) PO SCH (09:21)
[2020-06-07] MEDS: AZITHROMYCIN 1% OPHTH SOLN 1 BOTTLE OS SCH ×2 (09:22→22:09)
[2020-06-07] MEDS: CEFTRIAXONE 1 GM in DEXTROSE 5%-WATER - 50 ML IVPB SCH (09:23)
[2020-06-07 13:28] LABS: BILIRUBIN,DIRECT 0.4 mg/dL (0.0-0.2)
--- NOTE | 2020-06-07 14:22 | PN ---
Teaching Attending Note Name of Resident: Liban Gamino ATTENDING PHYSICIAN STATEMENT I saw and evaluated the patient. I reviewed the resident's note and discussed the case with the resident. I agree with the resident's findings and plan as documented. SUBJECTIVE: No complaints. Disoriented. Unable to participate in medical interview. OBJECTIVE: Afebrile, Hemodynamically Stable. Disoriented. Unable to follow commands. Last Vital Signs Temp Pulse Resp BP Pulse Ox 98.2 F 65 20 157/75 98 06/07/20 09:44 06/07/20 09:44 06/07/20 09:44 06/07/20 09:44 06/07/20 09:00 HEENT - Atraumatic, normocephalic. L lower eyelid mild swelling/erythema improving Heart - S1, S2, irregular. lungs - clear to auscultation Abdomen - Soft, non-tender. Bowel Sounds normal Extremities - no edema, no calf tenderness Neuro - AAO x 0. CORDELL. Moving all 4 extremities. Laboratory Results - last 24 hr 06/06/20 06/07/20 06/07/20 11:20 06:30 06:30 WBC 9.0 RBC 4.44 Hgb 14.0 Hct 40.9 MCV 92.2 MCH 31.6 MCHC 34.3 RDW 15.2 Plt Count 211 MPV 8.4 Sodium 141 Potassium 4.6 Chloride 109 H Carbon Dioxide 24 Anion Gap 8 BUN 21.7 H Creatinine 1.0 Est GFR (CKD-EPI)AfAm 57.84 Est GFR (CKD-EPI)NonAf 49.91 Random Glucose 114 H Calcium 10.9 H Phosphorus 2.9 Magnesium 2.1 Total Bilirubin 1.7 H Direct Bilirubin 0.4 H AST 29 ALT 15 Alkaline Phosphatase 136 H Total Protein 7.0 Albumin 3.5 Vitamin D Level 5.1 L Current Medications Generic Name Dose Route Start Last Admin Trade Name Freq PRN Reason Stop Dose Admin Amlodipine Besylate 10 mg 06/04/20 20:45 06/07/20 09:20 Norvasc - PO 10 mg DAILY DENISE Administration Aspirin 81 mg 06/06/20 10:00 06/07/20 09:20 Asa - PO 81 mg DAILY DENISE Administration Azithromycin 1 drop 06/06/20 10:15 06/07/20 09:22 Azasite 1% Ophth Soln - OS 1 drop BID DENISE Administration Enoxaparin Sodium 40 mg 06/05/20 10:00 06/07/20 09:20 Lovenox - SQ 40 mg DAILY DENISE Administration Hydralazine HCl 10 mg 06/04/20 22:00 06/07/20 09:21 Apresoline - PO 10 mg BID DENISE Administration Ceftriaxone Sodium 1 gm/ 50 mls @ 100 mls/hr 06/05/20 10:00 06/07/20 09:23 Dextrose IVPB 100 mls/hr DAILY DENISE Administration Protocol Potassium Chloride 10 meq/ 1,005 mls @ 83 mls/hr 06/06/20 13:30 06/07/20 03:27 Sodium Chloride IVPB 83 mls/hr Q12H DENISE Administration Levothyroxine Sodium 125 mcg 06/05/20 17:49 06/07/20 06:30 Synthroid - PO 125 mcg DAILY@0700 DENISE Administration Lorazepam 1 mg 06/05/20 18:15 06/07/20 02:41 Ativan Injection - IM 1 mg Q12H PRN Administration AGITATION Memantine 5 mg 06/04/20 22:00 06/06/20 22:06 Namenda - PO 5 mg HS DENISE Administration Metoprolol Succinate 50 mg 06/04/20 22:00 06/07/20 09:20 Toprol Xl - PO 50 mg BID DENISE Administration Olanzapine 2.5 mg 06/05/20 22:00 06/07/20 09:20 Zyprexa - PO 2.5 mg BID DENISE Administration Potassium Chloride 10 meq 06/05/20 10:00 06/07/20 09:21 K-Dur - PO 10 meq DAILY DENISE Administration Home Medications Medication Instructions Recorded Amlodipine Besylate 10 mg PO DAILY 06/04/20 Hydralazine HCl 10 mg PO BID 06/04/20 Levothyroxine [Synthroid -] 112 mcg PO DAILY 06/04/20 Memantine HCl 5 mg PO HS 06/04/20 Metoprolol Succinate 50 mg PO BID 06/04/20 Potassium Chloride 10 meq PO DAILY 06/04/20 ASSESSMENT AND PLAN: 89 year old female with a history of Atrial Fibrillation, HTN, Hypothyroidism, Dementia, brought to ED by family members with increasing confusion, aggression, falls. 1. Acute Metabolic Encephalopathy atop baseline Dementia with behavioral d isturbance secondary to UTI. Urine Cx - Ecoli- Day 3 Ceftriaxone Evaluated by Psychiatry - started on Zyprexa and Ativan PRN. Namenda resumed. 2. Hypothyrosidism - TSH 52. Family confirms compliance with Synthroid - dose increased to 125mcg, 3. HTN - Continue Norvasc, Hydralazine, Toprol XL 4. Atrial fibrillation, rate controlled. Continue Toprol XL. Not on AC secondary to falls. 5. Cardiomegaly and increased bilateral interstitial markings. BNP elevated at 3642. Clinically no evidence of decompensated CHF. Echo shows LVH, EF 55%, Moderate MR, Moderate AR, Moderate to Severe TR, Moderate Pulmonary HTN. Cardio evaluated and recommended no further Ix/work-up/medication modification. 6. Cerebrovascular Disease - Chronic Infarcts on CT Head. No evidence of acute infarct or focal neurological signs. Will start Aspirin. Will hold off Statin due to advanced age, underlying dementia, and muscle weakness/recurrent falls. 7. Hypercalcemia, etiology unclear. Vitamin D deficient - level 5.1. MM screen/PTH pending. IV hydration ongoing. Nephrology following. Will hold off Vitamin D supplementation for now in light of ongoing hypercalcemia. 8. Hypokalemia - repleted. 9. Blepharitis, L lower eyelid - Topical Abx/Systemic Ceftriaxone. Improving. DVT Px - Lovenox SQ.
--- NOTE | 2020-06-07 15:45 | PN ---
Progress Note, Physician History of Present Illness: Pt seen and examined at bedside. No great change in mental status. - Current Medication List Current Medications: Active Medications Amlodipine Besylate (Norvasc -) 10 mg PO DAILY [facility] Last Admin: 06/07/20 09:20 Dose: 10 mg Documented by: Aspirin (Asa -) 81 mg PO DAILY [facility] Last Admin: 06/07/20 09:20 Dose: 81 mg Documented by: Azithromycin (Azasite 1% Ophth Soln -) 1 drop OS BID [facility] Last Admin: 06/07/20 09:22 Dose: 1 drop Documented by: Enoxaparin Sodium (Lovenox -) 40 mg SQ DAILY [facility] Last Admin: 06/07/20 09:20 Dose: 40 mg Documented by: Hydralazine HCl (Apresoline -) 10 mg PO BID [facility] Last Admin: 06/07/20 09:21 Dose: 10 mg Documented by: Ceftriaxone Sodium 1 gm/ (Dextrose) 50 mls @ 100 mls/hr IVPB DAILY [facility]; Protocol Last Admin: 06/07/20 09:23 Dose: 100 mls/hr Documented by: Potassium Chloride 10 meq/ (Sodium Chloride) 1,005 mls @ 83 mls/hr IVPB Q12H [facility] Last Admin: 06/07/20 14:52 Dose: 83 mls/hr Documented by: Levothyroxine Sodium (Synthroid -) 125 mcg PO DAILY@0700 [facility] Last Admin: 06/07/20 06:30 Dose: 125 mcg Documented by: Lorazepam (Ativan Injection -) 1 mg IM Q12H PRN PRN Reason: AGITATION Last Admin: 06/07/20 02:41 Dose: 1 mg Documented by: Memantine (Namenda -) 5 mg PO HS [facility] Last Admin: 06/06/20 22:06 Dose: 5 mg Documented by: Metoprolol Succinate (Toprol Xl -) 50 mg PO BID [facility] Last Admin: 06/07/20 09:20 Dose: 50 mg Documented by: Olanzapine (Zyprexa -) 2.5 mg PO BID [facility] Last Admin: 06/07/20 09:20 Dose: 2.5 mg Documented by: Potassium Chloride (K-Dur -) 10 meq PO DAILY [facility] Last Admin: 06/07/20 09:21 Dose: 10 meq Documented by: - Objective Vital Signs: Vital Signs Temperature 98.2 F 06/07/20 09:44 Pulse Rate 65 06/07/20 09:44 Respiratory Rate 20 06/07/20 09:44 Blood Pressure 157/75 06/07/20 09:44 O2 Sat by Pulse Oximetry (%) 98 06/07/20 09:00 Constitutional: Yes: Calm Eyes: Yes: Conjunctiva Clear HENT: Yes: Atraumatic Neck: Yes: Supple Cardiovascular: Yes: S1, S2 Respiratory: Yes: CTA Bilaterally Gastrointestinal: Yes: Soft Genitourinary: Yes: WNL Musculoskeletal: Yes: Muscle Weakness Edema: No Neurological: Yes: Lethargy Labs: CBC, BMP 06/07/20 06:30 06/07/20 06:30 Problem List - Problems (1) Hypercalcemia Code(s): E83.52 - HYPERCALCEMIA (2) AMS (altered mental status) Code(s): R41.82 - ALTERED MENTAL STATUS, UNSPECIFIED Qualifiers: Altered mental status type: unspecified Qualified Code(s): R41.82 - Altered mental status, unspecified (3) Dementia Code(s): F03.90 - UNSPECIFIED DEMENTIA WITHOUT BEHAVIORAL DISTURBANCE (4) UTI (urinary tract infection) Code(s): N39.0 - URINARY TRACT INFECTION, SITE NOT SPECIFIED Qualifiers: Urinary tract infection type: site unspecified Hematuria presence: without hematuria Qualified Code(s): N39.0 - Urinary tract infection, site not specified Assessment/Plan Current Medications Generic Name Dose Route Start Last Admin Trade Name Freq PRN Reason Stop Dose Admin Amlodipine Besylate 10 mg 06/04/20 20:45 06/07/20 09:20 Norvasc - PO 10 mg DAILY [facility] Administration Aspirin 81 mg 06/06/20 10:00 06/07/20 09:20 Asa - PO 81 mg DAILY [facility] Administration Azithromycin 1 drop 06/06/20 10:15 06/07/20 09:22 Azasite 1% Ophth Soln - OS 1 drop BID DENISE Administration Enoxaparin Sodium 40 mg 06/05/20 10:00 06/07/20 09:20 Lovenox - SQ 40 mg DAILY [facility] Administration Hydralazine HCl 10 mg 06/04/20 22:00 06/07/20 09:21 Apresoline - PO 10 mg BID [facility]ISE Administration Ceftriaxone Sodium 1 gm/ 50 mls @ 100 mls/hr 06/05/20 10:00 06/07/20 09:23 Dextrose IVPB 100 mls/hr DAILY [facility] Administration Protocol Potassium Chloride 10 meq/ 1,005 mls @ 83 mls/hr 06/06/20 13:30 06/07/20 14:52 Sodium Chloride IVPB 83 mls/hr Q12H [facility] Administration Levothyroxine Sodium 125 mcg 06/05/20 17:49 06/07/20 06:30 Synthroid - PO 125 mcg DAILY@0700 [facility] Administration Lorazepam 1 mg 06/05/20 18:15 06/07/20 02:41 Ativan Injection - IM 1 mg Q12H PRN Administration AGITATION Memantine 5 mg 06/04/20 22:00 06/06/20 22:06 Namenda - PO 5 mg HS [facility]ISE Administration Metoprolol Succinate 50 mg 06/04/20 22:00 06/07/20 09:20 Toprol Xl - PO 50 mg BID DENISE Administration Olanzapine 2.5 mg 06/05/20 22:00 06/07/20 09:20 Zyprexa - PO 2.5 mg BID [facility]ISE Administration Potassium Chloride 10 meq 06/05/20 10:00 06/07/20 09:21 K-Dur - PO 10 meq DAILY [facility] Administration Impression 1. hypercalcemia 2. hypokalemia 3. dementia 4. hypothyroid 5. non compliance with meds 6. htn 7. a-fib Plan - will increase rate of fluids - give lasix of she developes overload - follow pth - repeat labs in am - monitor calcium - check spep and light chains
[2020-06-07] MEDS: SODIUM CHLORIDE 0.45% 1,000 ML IV SCH (16:30)
--- NOTE | 2020-06-07 19:04 | PN ---
Physical Exam: SUBJECTIVE: Patient seen and examined at bedside in the morning. The patient is A&O x 0 and sleepy. The patient's left lower eyelid blephritis looks mildly improved compared to yesterday. The patient was able to eat a small bowl of oatmeal previously today for breakfast. OBJECTIVE: Vital Signs Period Temp Pulse Resp BP Sys/Gaona Pulse Ox Last 24 Hr 97.5 F-98.2 F 65-72 20-20 152-160/75-89 96-98 GENERAL: A&O x 0 and sleepy. HEAD: Normal with no signs of trauma. EYES: Extraocular movements intact. No ptosis. ENT: Ears normal, nares patent, oropharynx clear without exudates, moist mucous membranes. NECK: Trachea midline, full range of motion, supple. LUNGS: Breath sounds equal, clear to auscultation bilaterally, no wheezes, no crackles, no accessory muscle use. HEART: Irregular, S1, S2 without murmur, rub or gallop. ABDOMEN: Soft, nontender, nondistended, normoactive bowel sounds, no guarding, no rebound, no masses. EXTREMITIES: 2+ pulses, warm, well-perfused, no edema. NEUROLOGICAL: A&O x 0 and sleepy. PSYCH: Normal mood, normal affect. SKIN: Warm, dry, normal turgor, no rashes or lesions noted Laboratory Results - last 24 hr 06/06/20 06/07/20 06/07/20 11:20 06:30 06:30 WBC 9.0 RBC 4.44 Hgb 14.0 Hct 40.9 MCV 92.2 MCH 31.6 MCHC 34.3 RDW 15.2 Plt Count 211 MPV 8.4 Sodium 141 Potassium 4.6 Chloride 109 H Carbon Dioxide 24 Anion Gap 8 BUN 21.7 H Creatinine 1.0 Est GFR (CKD-EPI)AfAm 57.84 Est GFR (CKD-EPI)NonAf 49.91 Random Glucose 114 H Calcium 10.9 H Phosphorus 2.9 Magnesium 2.1 Total Bilirubin 1.7 H Direct Bilirubin 0.4 H AST 29 ALT 15 Alkaline Phosphatase 136 H Total Protein 7.0 Albumin 3.5 Vitamin D Level 5.1 L Active Medications Generic Name Dose Route Start Last Admin Trade Name Freq PRN Reason Stop Dose Admin Amlodipine Besylate 10 mg 06/04/20 20:45 06/07/20 09:20 Norvasc - PO 10 mg DAILY [facility] Administration Aspirin 81 mg 06/06/20 10:00 06/07/20 09:20 Asa - PO 81 mg DAILY [facility] Administration Azithromycin 1 drop 06/06/20 10:15 06/07/20 09:22 Azasite 1% Ophth Soln - OS 1 drop BID [facility] Administration Enoxaparin Sodium 40 mg 06/05/20 10:00 06/07/20 09:20 Lovenox - SQ 40 mg DAILY [facility] Administration Hydralazine HCl 10 mg 06/04/20 22:00 06/07/20 09:21 Apresoline - PO 10 mg BID [facility] Administration Ceftriaxone Sodium 1 gm/ 50 mls @ 100 mls/hr 06/05/20 10:00 06/07/20 09:23 Dextrose IVPB 100 mls/hr DAILY [facility] Administration Protocol Sodium Chloride 1,000 mls @ 125 mls/hr 06/07/20 16:00 1/2 Normal Saline IV ASDIR [facility]ISE Levothyroxine Sodium 125 mcg 06/05/20 17:49 06/07/20 06:30 Synthroid - PO 125 mcg DAILY@0700 [facility] Administration Lorazepam 1 mg 06/05/20 18:15 06/07/20 02:41 Ativan Injection - IM 1 mg Q12H PRN Administration AGITATION Memantine 5 mg 06/04/20 22:00 06/06/20 22:06 Namenda - PO 5 mg HS [facility] Administration Metoprolol Succinate 50 mg 06/04/20 22:00 06/07/20 09:20 Toprol Xl - PO 50 mg BID [facility] Administration Olanzapine 2.5 mg 06/05/20 22:00 06/07/20 09:20 Zyprexa - PO 2.5 mg BID [facility] Administration ASSESSMENT/PLAN: 89 year old female patient with past medical history of AFib, Hypothyroidism, HTN, Dementia, who presented to the ED with acute metabolic encephalopathy secondary to UTI vs. Other etiology 1. Acute Metabolic Encephalopathy secondary to UTI +/- electrolyte imbalances with calcium - The patient was A&Ox0 and confused. - Urinalysis showed > 10,000 bacteria - Urine Culture show Lactose Fermenting Gram Negative Bacteria. - TSH was 52.3 - Toxicology negative - The patient is on Zyprexa per recommendation from Psych. - Chronic infarcts on CT Head. The patient is taking aspirin. 2. UTI - Urinalysis showed > 10,000 bacteria. - Urine Culture show Lactose Fermenting Gram Negative Bacteria. - The patient is taking Ceftriaxone 3. Hypercalcemia - Ca of 10.9 - Vit D of 5.1 - PTH pending - The patient is getting IV fluids 4. Hypothyroidism - TSH of 52.3 - The patient's dose of levothyroxine is 125mg - Outpatient follow up for titration of levothyroxine to the proper dose 5. Proteinuria - +2 Protein in urine from urinalysis - Spep and light chains labs per Nephro still pending 6. Blephritis of left lower eyelid - Left lower eyelid is still erythematous and swollen - The patient is now taking Azithromycin eye drops BID 7. AFib - AFib is a risk factor for cognitive decline and dementia per pubmed - ECG from showed AFib - Irregular pulse on exam - The patient is taking Metoprolol 8. r/o NPH - The patient has a history of falls, urinary incontinence, and dementia - CT of the Head did not show signs of NPH 9. HTN - The patient is taking Hydralazine, Amlodipine, and Metoprolol # FEN - IV fluids. The patient is on a Low Sodium Diet - soft diet due to difficulties with chewing. Monitoring Electrolytes. DVT Px - Lovenox Sq Dispo - Waiting for placement at [facility] on [place] Visit type - Emergency Visit Emergency Visit: Yes ED Registration Date: 06/04/20 Care time: The patient presented to the Emergency Department on the above date and was hospitalized for further evaluation of their emergent condition. - New Patient This patient is new to me today: No - Critical Care Critical Care patient: No - Discharge Referral Referred to [facility] Med [facility].C[facility] No ATTENDING PHYSICIAN STATEMENT I saw and evaluated the patient. I reviewed the resident's note and discussed the case with the resident. I agree with the resident's findings and plan as documented. SUBJECTIVE: OBJECTIVE: ASSESSMENT AND PLAN:
[2020-06-07] MEDS: MEMANTINE HCL 5 MG TABLET (UD) PO SCH (22:09)
[2020-06-08] MEDS: SODIUM CHLORIDE 0.45% 1,000 ML IV SCH ×2 (02:30→10:47)
[2020-06-08] MEDS: LEVOTHYROXINE NA 125 MCG TABLET (FP) PO SCH (06:01)
[2020-06-08 08:18] LABS: HEMATOCRIT 40.9 % (32.4-45.2); MCH 31.7 pg (25.7-33.7); MCHC 34.2 g/dl (32.0-36.0); MEAN CELL VOLUME 92.7 fl (80-96); MEAN PLT VOLUME 8.9 fl (7.5-11.1); PLATELET COUNT 188 K/MM3 (134-434); RBC 4.41 M/mm3 (3.60-5.2); RDW 15.1 % (11.6-15.6); WHITE BLOOD COUNT 8.3 K/mm3 (4.0-10.0)
[2020-06-08 08:57] LABS: POTASSIUM 3.8 mmol/L (3.5-5.1)
[2020-06-08 09:15] LABS: ALBUMIN 3.1 g/dl (3.4-5.0); BILIRUBIN,TOTAL 1.5 mg/dL (0.2-1); BLOOD UREA NITROGEN 21.4 mg/dL (7-18); CALCIUM 10.6 mg/dL (8.5-10.1); CREATININE 1.1 mg/dL (0.55-1.3); PHOSPHOROUS 3.1 mg/dL (2.5-4.9); TOT PROT 6.6 g/dl (6.4-8.2)
[2020-06-08] MEDS ORDERED: LORazepam 2 MG/ML SDV VIAL IM PRN (09:57)
[2020-06-08] MEDS ORDERED: DEXTROSE 5%-WATER - 50 ML IVPB ONE (10:37)
[2020-06-08] MEDS ORDERED: cefTRIAXone SODIUM 1 GM VIAL ONE (10:37)
[2020-06-08] MEDS: ENOXAPARIN NA (PORCINE) 40 MG/0.4 ML DISP.SYRIN SQ SCH (10:48)
[2020-06-08] MEDS: AZITHROMYCIN 1% OPHTH SOLN 1 BOTTLE OS SCH ×2 (10:50→22:09)
[2020-06-08] MEDS: amLODIPine BESYLATE 10 MG TABLET (FP) PO SCH (10:50)
[2020-06-08] MEDS: ASPIRIN 81 MG CHEWABLE TABLETS PO SCH (10:50)
[2020-06-08] MEDS: OLANZapine 2.5 MG TABLET PO SCH ×2 (10:50→22:10)
[2020-06-08] MEDS: hydrALAZINE HCL 10 MG TABLET PO SCH ×2 (10:51→22:09)
[2020-06-08] MEDS: CEFTRIAXONE 1 GM in DEXTROSE 5%-WATER - 50 ML IVPB SCH (10:51)
--- NOTE | 2020-06-08 10:57 | CONSULT ---
Admitting History and Physical - Admission History of Present Illness: 89-year-old female with significant dementia, hypertension, hyperlipidemia, chronic atrial fibrillation, now admitted with mental status changes and likely urinary tract infection on antibiotics. The patient is confused. Unable to hold a conversation. Not following commands. Selected Entries 06/06/20 06/06/20 06/06/20 13:59 18:14 23:00 Breakfast 25% Diet Tolerated Fair Refused Refused Lunch 50% Supper 0 0 Temperature Respiratory Rate Blood Pressure O2 Sat by Pulse Oximetry (%) Oxygen Delivery Method 06/07/20 06/07/20 06/07/20 09:00 13:00 15:00 Breakfast 25% Diet Tolerated Fair Lunch 50% Supper Temperature Respiratory Rate Blood Pressure O2 Sat by Pulse 98 96 Oximetry (%) Oxygen Delivery Room Air Method 06/07/20 06/07/20 06/07/20 17:53 21:00 23:27 Breakfast Diet Tolerated Poor Lunch Supper 25% Temperature Respiratory Rate Blood Pressure O2 Sat by Pulse 96 97 Oximetry (%) Oxygen Delivery Method 06/08/20 06/08/20 06:00 09:00 Breakfast Diet Tolerated Lunch Supper Temperature 98.6 F 98.2 F Respiratory 20 20 Rate Blood Pressure 125/74 143/88 O2 Sat by Pulse 94 L Oximetry (%) Oxygen Delivery Method Laboratory Tests 06/04/20 06/04/20 06/08/20 17:43 19:10 06:40 WBC 6.0 8.3 COVID-19 (AYLA) Not detected On puree/thin liquids. Poor appetite. 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 Cardiovascular: Yes: AFIB, CHF, HTN - Advance Directives Advance Directives: Yes: Health Care Proxy - Smoking History Smoking history: Unknown if ever smoked History - Admission Reason For Visit: UTI - Diagnostics CT Scan: Report Reviewed - General Mental Status: Confused, Flat Affect Attention: Severe Impairment (Eyes remained closed, fidgiting with covers) Ability to Follow Directions: Poor Head/Neck Control: Needs Assist - Hearing Hearing: Impaired, Both Hearing Aide: No With Patient: No Speech Evaluation - Communication Communication: Yes: Simple Responses (Only repeated "C'Mon!") - Speech Production Intelligibility: Yes: WNL - Speech Characteristics Voice Loudness: Normal Voice Pitch: Yes: Normal Voice Phonatory-based Quality: Yes: Normal - Language/Auditory Comprehension Observation: Able to respond to yes/no queries: No - Swallow Evaluation/Bedside Assessment Current Nutritional Intake: Dysphagia Pureed, Thin Liquids Oral Secretions: Yes: WFL Facial Symmetry at Rest: Symmetrical Lingual Movement: Unable to Perform Laryngeal Movement: Labored,delay initiation Rate of Intake: Slow/Holding Bolus Size: Small Oral Prep Time: Increased A-P Transit: Impaired Pocketing: Present Bilaterally Timing of Swallow: Delayed Coughing/Throat Clear: No Change in Voice: No Recommendations - Speech Evaluation, Impression/Plan Impression: Eyes closed, Oral holding with very delayed/ sometimes absent swallow onset with puree.SUPPORT STAFF able to give pt Ensure. No cough observed/reported but risk of aspiration, dehydration, malnutrition presently. Baseline? - Disposition [facility]charge to: [facility], To be Determined - Dysphagia Impressions/Plan Swallowing Skills: Impaired Dysphagia Impressions: Moderate Impairment *Silent aspiration: cannot be R/O at bedside Dysphagia Treatment Plan: Chin Tuck/Down, Clear Pocket Food, Facilitative Feeding, Safe Rate, 1/2 tsp. at a time, Other (Drinks better than accepting puree at this time. Monitor for improvement/ congestion) Recommendations: Palliative Care (Pt full code. Pt's wishes?) - Recommendations Diet Consistency: Dysphagia Pureed Medication Administration: Crushed with applesauce Liquids: Thin Liquids Supplement: Ensure (3-4 per day, as this may be mostly what pt accepts.)
--- NOTE | 2020-06-08 14:48 | PN ---
Progress Note, Physician History of Present Illness: Pt seen and examined at bedside. She remains lethargic. - Current Medication List Current Medications: Active Medications Amlodipine Besylate (Norvasc -) 10 mg PO DAILY [facility] Last Admin: 06/08/20 10:50 Dose: 10 mg Documented by: Aspirin (Asa -) 81 mg PO DAILY [facility] Last Admin: 06/08/20 10:50 Dose: 81 mg Documented by: Azithromycin (Azasite 1% Ophth Soln -) 1 drop OS BID [facility] Last Admin: 06/08/20 10:50 Dose: 1 drop Documented by: Enoxaparin Sodium (Lovenox -) 40 mg SQ DAILY [facility] Last Admin: 06/08/20 10:48 Dose: 40 mg Documented by: Hydralazine HCl (Apresoline -) 10 mg PO BID [facility] Last Admin: 06/08/20 10:51 Dose: 10 mg Documented by: Ceftriaxone Sodium 1 gm/ (Dextrose) 50 mls @ 100 mls/hr IVPB DAILY [facility]; Protocol Last Admin: 06/08/20 10:51 Dose: 100 mls/hr Documented by: Sodium Chloride (1/2 Normal Saline) 1,000 mls @ 125 mls/hr IV ASDIR [facility] Last Admin: 06/08/20 10:47 Dose: 125 mls/hr Documented by: Levothyroxine Sodium (Synthroid -) 125 mcg PO DAILY@0700 [facility] Last Admin: 06/08/20 06:01 Dose: 125 mcg Documented by: Lorazepam (Ativan Injection -) 0.5 mg IM Q12H PRN PRN Reason: AGITATION Memantine (Namenda -) 5 mg PO HS [facility] Last Admin: 06/07/20 22:09 Dose: 5 mg Documented by: Metoprolol Succinate (Toprol Xl -) 50 mg PO BID [facility] Last Admin: 06/08/20 10:50 Dose: 50 mg Documented by: Olanzapine (Zyprexa -) 2.5 mg PO BID [facility] Last Admin: 06/08/20 10:50 Dose: 2.5 mg Documented by: - Objective Vital Signs: Vital Signs Temperature 98.2 F 06/08/20 09:00 Pulse Rate 66 06/08/20 09:00 Respiratory Rate 20 06/08/20 09:00 Blood Pressure 143/88 06/08/20 09:00 O2 Sat by Pulse Oximetry (%) 94 L 07/17/20 09:00 Constitutional: Yes: Calm Eyes: Yes: Conjunctiva Clear HENT: Yes: Atraumatic Neck: Yes: Supple Cardiovascular: Yes: S1, S2 Respiratory: Yes: CTA Bilaterally Gastrointestinal: Yes: Soft Genitourinary: Yes: Incontinence Edema: No Neurological: Yes: Lethargy Labs: CBC, BMP 06/08/20 06:40 06/08/20 06:40 Problem List - Problems (1) Hypercalcemia Code(s): E83.52 - HYPERCALCEMIA (2) AMS (altered mental status) Code(s): R41.82 - ALTERED MENTAL STATUS, UNSPECIFIED Qualifiers: Altered mental status type: unspecified Qualified Code(s): R41.82 - Altered mental status, unspecified (3) Dementia Code(s): F03.90 - UNSPECIFIED DEMENTIA WITHOUT BEHAVIORAL DISTURBANCE (4) UTI (urinary tract infection) Code(s): N39.0 - URINARY TRACT INFECTION, SITE NOT SPECIFIED Qualifiers: Urinary tract infection type: site unspecified Hematuria presence: without hematuria Qualified Code(s): N39.0 - Urinary tract infection, site not specified Assessment/Plan Current Medications Generic Name Dose Route Start Last Admin Trade Name Freq PRN Reason Stop Dose Admin Amlodipine Besylate 10 mg 06/04/20 20:45 06/08/20 10:50 Norvasc - PO 10 mg DAILY [facility] Administration Aspirin 81 mg 06/06/20 10:00 06/08/20 10:50 Asa - PO 81 mg DAILY [facility] Administration Azithromycin 1 drop 06/06/20 10:15 06/08/20 10:50 Azasite 1% Ophth Soln - OS 1 drop BID [facility]ISE Administration Enoxaparin Sodium 40 mg 06/05/20 10:00 06/08/20 10:48 Lovenox - SQ 40 mg DAILY [facility] Administration Hydralazine HCl 10 mg 06/04/20 22:00 06/08/20 10:51 Apresoline - PO 10 mg BID [facility]ISE Administration Ceftriaxone Sodium 1 gm/ 50 mls @ 100 mls/hr 06/05/20 10:00 06/08/20 10:51 Dextrose IVPB 100 mls/hr DAILY [facility] Administration Protocol Sodium Chloride 1,000 mls @ 125 mls/hr 06/07/20 16:00 06/08/20 10:47 1/2 Normal Saline IV 125 mls/hr ASDIR [facility] Administration Levothyroxine Sodium 125 mcg 06/05/20 17:49 06/08/20 06:01 Synthroid - PO 125 mcg DAILY@0700 [facility] Administration Lorazepam 0.5 mg 06/08/20 09:57 Ativan Injection - IM Q12H PRN AGITATION Memantine 5 mg 06/04/20 22:00 06/07/20 22:09 Namenda - PO 5 mg HS [facility]ISE Administration Metoprolol Succinate 50 mg 06/04/20 22:00 06/08/20 10:50 Toprol Xl - PO 50 mg BID [facility]ISE Administration Olanzapine 2.5 mg 06/05/20 22:00 06/08/20 10:50 Zyprexa - PO 2.5 mg BID DENISE Administration Laboratory Tests 06/06/20 06:25 PTH Intact 97 H Impression 1. hypercalcemia 2. hypokalemia 3. dementia 4. hypothyroid 5. non compliance with meds 6. htn 7. a-fib Plan - pth elevated, workup for primary hyperpara - monitor calcium - can cont fluids for now - repeat labs in am - monitor calcium - follow spep and light chains
--- NOTE | 2020-06-08 15:37 | PN ---
Teaching Attending Note Name of Resident: Liban Gamino ATTENDING PHYSICIAN STATEMENT I saw and evaluated the patient. I reviewed the resident's note and discussed the case with the resident. I agree with the resident's findings and plan as documented. SUBJECTIVE: No complaints. Disoriented. Unable to participate in medical interview. OBJECTIVE: Afebrile, Hemodynamically Stable. Disoriented. Unable to follow commands. Lethargic s/p Atvan Last Vital Signs Temp Pulse Resp BP Pulse Ox 97.5 F L 70 20 124/58 L 94 L 06/08/20 15:03 06/08/20 15:03 06/08/20 15:03 06/08/20 15:03 06/08/20 15:03 HEENT - Atraumatic, normocephalic. L lower eyelid mild swelling/erythema improving, no surrounding cellulitis. Heart - S1, S2, irregular. lungs - clear to auscultation Abdomen - Soft, non-tender. Bowel Sounds normal Extremities - no edema, no calf tenderness Neuro - AAO x 0. CORDELL. Moving all 4 extremities. Laboratory Results - last 24 hr 06/06/20 06/08/20 06/08/20 06:25 06:40 06:40 WBC 8.3 RBC 4.41 Hgb 14.0 Hct 40.9 MCV 92.7 MCH 31.7 MCHC 34.2 RDW 15.1 Plt Count 188 MPV 8.9 Sodium 137 Potassium 3.8 Chloride 107 Carbon Dioxide 23 Anion Gap 8 BUN 21.4 H Creatinine 1.1 Est GFR (CKD-EPI)AfAm 51.55 Est GFR (CKD-EPI)NonAf 44.48 Random Glucose 136 H Calcium 10.6 H Phosphorus 3.1 Magnesium 2.0 Total Bilirubin 1.5 H AST 30 ALT 15 Alkaline Phosphatase 121 H Total Protein 6.6 Albumin 3.1 L PTH Intact 97 H Current Medications Generic Name Dose Route Start Last Admin Trade Name Freq PRN Reason Stop Dose Admin Amlodipine Besylate 10 mg 06/04/20 20:45 06/08/20 10:50 Norvasc - PO 10 mg DAILY [facility] Administration Aspirin 81 mg 06/06/20 10:00 06/08/20 10:50 Asa - PO 81 mg DAILY [facility] Administration Azithromycin 1 drop 06/06/20 10:15 06/08/20 10:50 Azasite 1% Ophth Soln - OS 1 drop BID [facility]ISE Administration Enoxaparin Sodium 40 mg 06/05/20 10:00 06/08/20 10:48 Lovenox - SQ 40 mg DAILY [facility] Administration Hydralazine HCl 10 mg 06/04/20 22:00 06/08/20 10:51 Apresoline - PO 10 mg BID [facility]ISE Administration Ceftriaxone Sodium 1 gm/ 50 mls @ 100 mls/hr 06/05/20 10:00 06/08/20 10:51 Dextrose IVPB 100 mls/hr DAILY [facility] Administration Protocol Sodium Chloride 1,000 mls @ 125 mls/hr 06/07/20 16:00 06/08/20 10:47 1/2 Normal Saline IV 125 mls/hr ASDIR [facility]ISE Administration Levothyroxine Sodium 125 mcg 06/05/20 17:49 06/08/20 06:01 Synthroid - PO 125 mcg DAILY@0700 [facility]ISE Administration Lorazepam 0.5 mg 06/08/20 09:57 Ativan Injection - IM Q12H PRN AGITATION Memantine 5 mg 06/04/20 22:00 06/07/20 22:09 Namenda - PO 5 mg HS [facility]ISE Administration Metoprolol Succinate 50 mg 06/04/20 22:00 06/08/20 10:50 Toprol Xl - PO 50 mg BID DENISE Administration Olanzapine 2.5 mg 06/05/20 22:00 06/08/20 10:50 Zyprexa - PO 2.5 mg BID DENISE Administration Home Medications Medication Instructions Recorded Amlodipine Besylate 10 mg PO DAILY 06/04/20 Hydralazine HCl 10 mg PO BID 06/04/20 Levothyroxine [Synthroid -] 112 mcg PO DAILY 06/04/20 Memantine HCl 5 mg PO HS 06/04/20 Metoprolol Succinate 50 mg PO BID 06/04/20 Potassium Chloride 10 meq PO DAILY 06/04/20 ASSESSMENT AND PLAN: 89 year old female with a history of Atrial Fibrillation, HTN, Hypothyroidism, Dementia, brought to ED by family members with increasing confusion, aggression, falls. 1. Acute Metabolic Encephalopathy atop baseline Dementia with behavioral disturbance secondary to UTI. Urine Cx - Ecoli - Day 4 Ceftriaxone Evaluated by Psychiatry - started on Zyprexa and Ativan PRN. Namenda resumed. Patient appeared slightly lethargic today - PRN dose of Ativan decreased. Diet changed to dysphagia puree with thin liquids, ensure supplementation, meds in applesauce on recommendation of speech therapy. 2. Hypothyrosidism - TSH 52. Family confirms compliance with Synthroid - dose increased to 125mcg, 3. HTN - Continue Norvasc, Hydralazine, Toprol XL 4. Atrial fibrillation, rate controlled. Continue Toprol XL. Not on AC secondary to falls. 5. Cardiomegaly and increased bilateral interstitial markings. BNP elevated at 3642. Clinically no evidence of decompensated CHF. Echo shows LVH, EF 55%, Moderate MR, Moderate AR, Moderate to Severe TR, Moderate Pulmonary HTN. Cardio evaluated and recommended no further Ix/work-up/medication modification. 6. Cerebrovascular Disease - Chronic Infarcts on CT Head. No evidence of acute infarct or focal neurological signs. Will start Aspirin. Will hold off Statin due to advanced age, underlying dementia, and muscle weakness/recurrent falls. 7. Hypercalcemia, etiology unclear. Vitamin D deficient - level 5.1. Elevated PTH at 97. MM screen pending. IV hydration ongoing. Nephrology following. Will hold off Vitamin D supplementation for now in light of ongoing hypercalcemia. 8. Hypokalemia - recurrent, repleted. 9. Blepharitis, L lower eyelid - Topical Abx/Systemic Ceftriaxone. Improving. DVT Px - Lovenox SQ.
[2020-06-08] MEDS ORDERED: SODIUM CHLORIDE 0.45% 1,000 ML IV SCH (15:41)
[2020-06-08 17:07] LABS: FREE KAPPA,SERUM 47.6 mg/L (3.3-19.4)
--- NOTE | 2020-06-08 20:08 | PN ---
Physical Exam: SUBJECTIVE: Patient seen and examined at bedside. The patient is A&Ox0 and confused and restless. Her left lower eyelid's redness and swelling has mildly improved. The patient was put on a puree diet to help with her eating. OBJECTIVE: Vital Signs Period Temp Pulse Resp BP Sys/Gaona Pulse Ox Last 24 Hr 97.5 F-98.6 F 62-78 18-20 124-154/58-88 94-97 GENERAL: The patient is A&O x 0 and confused HEAD: Normal with no signs of trauma. EYES: Extraocular movements intact. No ptosis. ENT: Ears normal, nares patent, oropharynx clear without exudates, moist mucous membranes. NECK: Trachea midline, full range of motion, supple. LUNGS: Decreased breath sounds bilaterally. HEART: Regular rate and rhythm, S1, S2 without murmur, rub or gallop. ABDOMEN: Soft, nontender, nondistended, normoactive bowel sounds, no guarding, no rebound, no masses. EXTREMITIES: 2+ pulses, warm, well-perfused, no edema. NEUROLOGICAL: Normal speech, gait not observed. PSYCH: Restless in the morning. Later was sleepy. SKIN: Warm, dry, normal turgor, no rashes or lesions noted. Red swollen left eyelid. Laboratory Results - last 24 hr 06/06/20 06/07/20 06/08/20 06:25 06:30 06:40 WBC RBC Hgb Hct MCV MCH MCHC RDW Plt Count MPV Sodium 137 Potassium 3.8 Chloride 107 Carbon Dioxide 23 Anion Gap 8 BUN 21.4 H Creatinine 1.1 Est GFR (CKD-EPI)AfAm 51.55 Est GFR (CKD-EPI)NonAf 44.48 Random Glucose 136 H Calcium 10.6 H Phosphorus 3.1 Magnesium 2.0 Total Bilirubin 1.5 H AST 30 ALT 15 Alkaline Phosphatase 121 H Total Protein 6.6 Albumin 3.1 L PTH Intact 97 H Free [place] LC, Quant 47.6 H Free Lambda LC, Quant 22.3 Free [place]/Lambda Ratio 2.13 H 06/08/20 06:40 WBC 8.3 RBC 4.41 Hgb 14.0 Hct 40.9 MCV 92.7 MCH 31.7 MCHC 34.2 RDW 15.1 Plt Count 188 MPV 8.9 Sodium Potassium Chloride Carbon Dioxide Anion Gap BUN Creatinine Est GFR (CKD-EPI)AfAm Est GFR (CKD-EPI)NonAf Random Glucose Calcium Phosphorus Magnesium Total Bilirubin AST ALT Alkaline Phosphatase Total Protein Albumin PTH Intact Free [place] LC, Quant Free Lambda LC, Quant Free [place]/Lambda Ratio Active Medications Generic Name Dose Route Start Last Admin Trade Name Freq PRN Reason Stop Dose Admin Amlodipine Besylate 10 mg 06/04/20 20:45 06/08/20 10:50 Norvasc - PO 10 mg DAILY DENISE Administration Aspirin 81 mg 06/06/20 10:00 06/08/20 10:50 Asa - PO 81 mg DAILY DENISE Administration Azithromycin 1 drop 06/06/20 10:15 06/08/20 10:50 Azasite 1% Ophth Soln - OS 1 drop BID DENISE Administration Enoxaparin Sodium 40 mg 06/05/20 10:00 06/08/20 10:48 Lovenox - SQ 40 mg DAILY DENISE Administration Hydralazine HCl 10 mg 06/04/20 22:00 06/08/20 10:51 Apresoline - PO 10 mg BID DENISE Administration Ceftriaxone Sodium 1 gm/ 50 mls @ 100 mls/hr 06/05/20 10:00 06/08/20 10:51 Dextrose IVPB 100 mls/hr DAILY DENISE Administration Protocol Sodium Chloride 1,000 mls @ 75 mls/hr 06/08/20 15:41 1/2 Normal Saline IV ASDIR DENISE Levothyroxine Sodium 125 mcg 06/05/20 17:49 06/08/20 06:01 Synthroid - PO 125 mcg DAILY@0700 DENISE Administration Lorazepam 0.5 mg 06/08/20 09:57 Ativan Injection - IM Q12H PRN AGITATION Memantine 5 mg 06/04/20 22:00 06/07/20 22:09 Namenda - PO 5 mg HS DENISE Administration Metoprolol Succinate 50 mg 06/04/20 22:00 06/08/20 10:50 Toprol Xl - PO 50 mg BID DENISE Administration Olanzapine 2.5 mg 06/05/20 22:00 06/08/20 10:50 Zyprexa - PO 2.5 mg BID DENISE Administration ASSESSMENT/PLAN: 89 year old female patient with past medical history of AFib, Hypothyroidism, HTN, Dementia, who presented to the ED with acute metabolic encephalopathy secondary to UTI vs. Other etiology 1. Acute Metabolic Encephalopathy secondary to UTI +/- electrolyte imbalances with calcium - The patient was A&Ox0 and confused. - Urinalysis showed > 10,000 bacteria - Urine Culture show Lactose Fermenting Gram Negative Bacteria. - TSH was 52.3 - Toxicology negative - The patient is on Zyprexa per recommendation from Psych. - Chronic infarcts on CT Head. The patient is taking aspirin. 2. UTI - Urinalysis showed > 10,000 bacteria. - Urine Culture show Lactose Fermenting Gram Negative Bacteria. - The patient is taking Ceftriaxone 3. Hypercalcemia possibly secondary to multiple myeloma - Ca of 10.6 - Vit D of 5.1 - PTH 97 - The patient is getting IV fluids - Free [place] 47.6 about x2 Upper Limit of Normal, Free Lambda 22.3 below Upper Limit of Normal, Free [place]/Lambda Ratio: 2.13 suggestive of multiple myeloma because the ratio is above 2 4. Hypothyroidism - TSH of 52.3 - The patient's dose of levothyroxine is 125mg - Outpatient follow up for titration of levothyroxine to the proper dose 5. Proteinuria - +2 Protein in urine from urinalysis - Spep and light chains labs suggests multiple myeloma because the Free [place]/Lambda Ratio is > 2. 6. Blephritis of left lower eyelid - Left lower eyelid is still erythematous and swollen - The patient is taking Azithromycin eye drops BID 7. AFib - AFib is a risk factor for cognitive decline and dementia per pubmed - ECG from showed AFib - Irregular pulse on exam - The patient is taking Metoprolol 8. r/o NPH - The patient has a history of falls, urinary incontinence, and dementia - CT of the Head did not show signs of NPH 9. HTN - The patient is taking Hydralazine, Amlodipine, and Metoprolol # FEN - IV fluids. The patient is on a Low Sodium Diet - puree diet due to difficulties with chewing. Monitoring Electrolytes. DVT Px - Lovenox Sq Dispo - Transfer to [facility] [address] possibly tomorrow. Visit type - Emergency Visit Emergency Visit: Yes ED Registration Date: 06/04/20 Care time: The patient presented to the Emergency Department on the above date and was hospitalized for further evaluation of their emergent condition. - New Patient This patient is new to me today: No - Critical Care Critical Care patient: No - Discharge Referral Referred to [facility] Med P.C.: No ATTENDING PHYSICIAN STATEMENT I saw and evaluated the patient. I reviewed the resident's note and discussed the case with the resident. I agree with the resident's findings and plan as documented. SUBJECTIVE: OBJECTIVE: ASSESSMENT AND PLAN:
[2020-06-08] MEDS ORDERED: PT OWN MED DRAWER 7, Y5N ONE (21:33)
[2020-06-08] MEDS: MEMANTINE HCL 5 MG TABLET (UD) PO SCH (22:10)
[2020-06-09] MEDS: LEVOTHYROXINE NA 125 MCG TABLET (FP) PO SCH (06:04)
[2020-06-09 09:05] LABS: HEMOGLOBIN 15.1 GM/dL (10.7-15.3); MCH 31.8 pg (25.7-33.7); MCHC 34.2 g/dl (32.0-36.0); MEAN CELL VOLUME 92.8 fl (80-96); MEAN PLT VOLUME 8.6 fl (7.5-11.1); PLATELET COUNT 193 K/MM3 (134-434); RBC 4.74 M/mm3 (3.60-5.2); WHITE BLOOD COUNT 8.4 K/mm3 (4.0-10.0)
[2020-06-09] MEDS ORDERED: PT OWN MED DRAWER 7, Y5N ONE (09:06)
[2020-06-09] MEDS ORDERED: cefTRIAXone SODIUM 1 GM VIAL ONE (09:07)
[2020-06-09] MEDS ORDERED: DEXTROSE 5%-WATER - 50 ML IVPB ONE (09:07)
[2020-06-09] MEDS: amLODIPine BESYLATE 10 MG TABLET (FP) PO SCH (09:09)
[2020-06-09] MEDS: CEFTRIAXONE 1 GM in DEXTROSE 5%-WATER - 50 ML IVPB SCH (09:09)
[2020-06-09] MEDS: hydrALAZINE HCL 10 MG TABLET PO SCH (09:09)
[2020-06-09] MEDS: ENOXAPARIN NA (PORCINE) 40 MG/0.4 ML DISP.SYRIN SQ SCH (09:09)
[2020-06-09] MEDS: ASPIRIN 81 MG CHEWABLE TABLETS PO SCH (09:09)
[2020-06-09] MEDS: OLANZapine 2.5 MG TABLET PO SCH (09:09)
[2020-06-09 09:37] LABS: BLOOD UREA NITROGEN 20.8 mg/dL (7-18); CALCIUM 10.8 mg/dL (8.5-10.1); MAGNESIUM 2.3 mg/dL (1.8-2.4); PHOSPHOROUS 2.9 mg/dL (2.5-4.9); POTASSIUM 3.8 mmol/L (3.5-5.1)
[2020-06-09] MEDS: AZITHROMYCIN 1% OPHTH SOLN 1 BOTTLE OS SCH (10:29)
--- NOTE | 2020-06-09 13:43 | PN ---
Progress Note (short form) - Note Progress Note: 1. hypercalcemia 2. hypokalemia 3. dementia 4. hypothyroid 5. non compliance with meds 6. htn 7. a-fib Active Medications Amlodipine Besylate (Norvasc -) 10 mg PO DAILY [facility] Last Admin: 06/09/20 09:09 Dose: 10 mg Documented by: Aspirin (Asa -) 81 mg PO DAILY [facility] Last Admin: 06/09/20 09:09 Dose: 81 mg Documented by: Azithromycin (Azasite 1% [facility] Soln -) 1 drop OS BID [facility] Last Admin: 06/09/20 10:29 Dose: 1 drop Documented by: Enoxaparin Sodium (Lovenox -) 40 mg SQ DAILY [facility] Last Admin: 06/09/20 09:09 Dose: 40 mg Documented by: Hydralazine HCl (Apresoline -) 10 mg PO BID [facility] Last Admin: 06/09/20 09:09 Dose: 10 mg Documented by: Ceftriaxone Sodium 1 gm/ (Dextrose) 50 mls @ 100 mls/hr IVPB DAILY [facility]; Protocol Last Admin: 06/09/20 09:09 Dose: 100 mls/hr Documented by: Sodium Chloride (1/2 Normal Saline) 1,000 mls @ 75 mls/hr IV ASDIR [facility] Last Admin: 06/08/20 20:52 Dose: 75 mls/hr Documented by: Levothyroxine Sodium (Synthroid -) 125 mcg PO DAILY@0700 [facility] Last Admin: 06/09/20 06:04 Dose: 125 mcg Documented by: Lorazepam (Ativan Injection -) 0.5 mg IM Q12H PRN PRN Reason: AGITATION Memantine (Namenda -) 5 mg PO HS [facility] Last Admin: 06/08/20 22:10 Dose: 5 mg Documented by: Metoprolol Succinate (Toprol Xl -) 50 mg PO BID [facility] Last Admin: 06/09/20 09:09 Dose: 50 mg Documented by: Olanzapine (Zyprexa -) 2.5 mg PO BID [facility] Last Admin: 06/09/20 09:09 Dose: 2.5 mg Documented by: Last Vital Signs Temp Pulse Resp BP Pulse Ox 98.3 F 91 H 20 166/97 95 06/09/20 10:00 06/09/20 10:00 06/09/20 10:00 06/09/20 10:00 06/09/20 10:00 CBC, BMP 06/09/20 08:30 06/09/20 08:30 Hypercalcemia - pth elevated, Probable primary hyperpara Continue fluids - monitor calcium No contraindication to discharge
[2020-06-09 16:53] VITALS: BP 144/67; PULSE 77; TEMP 98.7
--- NOTE | 2020-06-09 17:01 | DS ---
Physical Exam: SUBJECTIVE: Patient seen and examined at bedside. The patient is sleepy this morning and A&Ox0 but in no acute distress. OBJECTIVE: Vital Signs Period Temp Pulse Resp BP Sys/Gaona Pulse Ox Last 24 Hr 97.9 F-98.7 F 68-91 20-20 127-166/67-97 94-95 PHYSICAL EXAM GENERAL: The patient is A&Ox0, but in no acute distress. HEAD: Normal with no signs of trauma. EYES: Extraocular movements intact. Left lower eyelid swollen and red, slightly improved from yesterday. ENT: Ears normal, nares patent, oropharynx clear without exudates, moist mucous membranes. NECK: Trachea midline, full range of motion, supple. LUNGS: Breath sounds equal, clear to auscultation bilaterally, no wheezes, no crackles, no accessory muscle use. HEART: Regular rate and rhythm, S1, S2 without murmur, rub or gallop. ABDOMEN: Soft, nontender, nondistended, normoactive bowel sounds, no guarding, n o rebound, no masses. EXTREMITIES: 2+ pulses, warm, well-perfused, no edema. NEUROLOGICAL: Normal speech, gait not observed. SKIN: Warm, dry, normal turgor. Left lower eyelid swollen and red, slightly improved from yesterday. LABS Laboratory Results - last 24 hr 06/07/20 06/09/20 06/09/20 06:30 08:30 08:30 WBC 8.4 RBC 4.74 Hgb 15.1 Hct 44.0 MCV 92.8 MCH 31.8 MCHC 34.2 RDW 15.0 Plt Count 193 MPV 8.6 Sodium 141 Potassium 3.8 Chloride 110 H Carbon Dioxide 22 Anion Gap 9 BUN 20.8 H Creatinine 1.0 Est GFR (CKD-EPI)AfAm 57.84 Est GFR (CKD-EPI)NonAf 49.91 Random Glucose 112 H Calcium 10.8 H Phosphorus 2.9 Magnesium 2.3 Free [place] LC, Quant 47.6 H Free Lambda LC, Quant 22.3 Free [place]/Lambda Ratio 2.13 H HOSPITAL COURSE: Date of Admission:06/04/20 89 year old female patient with past medical history that includes Dementia, AFib, Hypothyroidism, HTN, who presented to the ED with increased aggression, confusion, and falls. The symptoms started after the patient fell 2 years ago and has had a progressive decline since. 3 months ago the patient began to behave more aggressively toward family members. The patient has also had increased episodes of urinary incontinence starting 2 [address] A Head [address] was ordered which showed a few chronic infarcts, such as in the right frontal lobe, and chronic microvascular ischemic infarcts; however, with ventricles only mild to moderately dilated. Urine Culture was taken to rule out a UTI. The urine culture grew E Coli and the patient was put on Ceftriaxone antibiotics. Labs showed a TSH of 52.3, so the patient's dose of levothyroxine was increased to 125mg. When asked about the patient's compliance with her medication, the family stated that the patient occasionally forgets to take her medications each week, but is otherwise generally compliant. A CXR to rule out pneumonia showed cardiomegaly and a BNP was found to be 3,642, so the patient had an ECHO done, which showed an EF of 55% but with multiple valvular problems (moderate MR, mild to moderate AR, moderate to severe TR, moderate pulm HTN). The patient's Calcium was also found to be elevated at 11.0 despite adequate hydration, so a PTH and Vitamin D was ordered. The PTH was found to be high at 97 and the Vitamin D was low at 5.1. A Urinalysis also showed 2+ protein so a spep and light chains was ordered, which showed a [place] to Lambda ratio of 2.13 with the [place] elevated at 47.6. The patient's left lower eyelid was found to have become swollen and erythematous, so the patient was put on Azithromycin eye drops. The patient was transferred to [facility]. Date of Discharge: 06/09/20 Minutes to complete discharge: 43 Discharge Summary Problems reviewed: Yes Reason For Visit: UTI Current Active Problems Dementia (Chronic) Condition: Good - Instructions Diet, Activity, Other Instructions: You were admitted to the hospital because you were found to be confused and disoriented. We evaluated you with blood work, lab work, and imaging including a CAT scan of your head. Based on your evaluation, we found that you had a urinary tract infection. We treated you with medication including antibiotics during your stay and symptoms resolved. During your stay, we also found that your calcium levels were elevated. We had our art education professor evaluate you and they recommended you follow up outpatient. Imaging Findings On an ECHO of your heart during your stay, we found moderate flow of blood backwards through some valves in your heart, as well as high blood pressure inside your lungs. Medications We have made some changes to your medications, Please START taking Synthroid 125 mcg per day instead of your synthroid 112 mcg Please START taking Aspirin 81 mg daily Please START taking Zyprexa 2.5 twice daily for your dementia Please also START using topical Azithromycin eye ointment for 4 more days to treat your eyelid infection on left eye. Please continue all of your medications as prescribed. Follow ups Please follow up with your primary care physician Dr. Branden Armstrong within 1 we ek for repeat CMP. Please follow up with the art education professor Dr. Andie Borrero within 1 week regarding protein found in your urine. Please follow up with your pattern checker, Dr. Suazo within 1, for further evaluation. Please follow up with your psychiatrist, Dr. Jeff Cortes within 1 week or your own psychiatrist for further evaluation and medication adjustment. If you have worsening symptoms, chest pain, difficulty breathing, abdominal pain, or worsening of your condition, please come back to the emergency room or call 911. Diet changed to dysphagia puree with thin liquids, ensure supplementation, meds in applesauce on recommendation of speech therapy. Will need repeat CMP on Thursday06/11/[address] Arizmendi (Nephrology) Referrals: Lizett Leyva MD [Staff Physician] - 1 Week (medication adjustment) Ramos Suazo MD [Staff Physician] - 1 Week Andie Borrero MD [Staff Physician] - 1 Week Branden Armstrong MD [Primary Care Provider] - 1 Week [facility]position: [facility] - Home Medications Comprehensive Discharge Medication List: Ambulatory Orders Amlodipine Besylate 10 mg PO DAILY 06/04/20 Hydralazine HCl 10 mg PO BID 06/04/20 Memantine HCl 5 mg PO HS 06/04/20 Metoprolol Succinate 50 mg PO BID 06/04/20 Potassium Chloride 10 meq PO DAILY 06/04/20 Aspirin Coated [Ecotrin -] 81 mg PO DAILY #30 tablet.ec 06/09/20 Azithromycin Ophth Soln [Azasite 1% Ophth Soln -] 1 drop OD BID 1 Days #2 drops 06/09/20 Levothyroxine [Synthroid -] 125 mcg PO DAILY #30 tablet 06/09/20 Olanzapine [Zyprexa] 2.5 mg PO BID 30 Days #60 tablet 06/09/20 This patient is new to me today: No Emergency Visit: Yes ED Registration Date: 06/04/20 Care time: The patient presented to the Emergency Department on the above date and was hospitalized for further evaluation of their emergent condition. Critical Care patient: No - Discharge Referral Referred to [facility] Med P.C.: No ATTENDING PHYSICIAN STATEMENT I saw and evaluated the patient. I reviewed the resident's note and discussed the case with the resident. I agree with the resident's findings and plan as documented. SUBJECTIVE: OBJECTIVE: ASSESSMENT AND PLAN:
--- NOTE | 2020-06-09 17:12 | PN ---
Teaching Attending Note Name of Resident: Liban Gamino ATTENDING PHYSICIAN STATEMENT I saw and evaluated the patient. I reviewed the resident's note and discussed the case with the resident. I agree with the resident's findings and plan as documented. SUBJECTIVE: No complaints. Disoriented. Unable to participate in medical interview. OBJECTIVE: Afebrile, Hemodynamically Stable. Disoriented. rousable, Unable to follow commands. Last Vital Signs Temp Pulse Resp BP Pulse Ox 98.7 F 77 20 144/67 95 06/09/20 16:52 06/09/20 16:52 06/09/20 16:52 06/09/20 16:52 06/09/20 14:00 HEENT - Atraumatic, normocephalic. L lower eyelid mild swelling/erythema improved, no surrounding cellulitis. Heart - S1, S2, irregular. lungs - clear to auscultation Abdomen - Soft, non-tender. Bowel Sounds normal Extremities - no edema, no calf tenderness Neuro - AAO x 0. CORDELL. Moving all 4 extremities. Laboratory Results - last 24 hr 06/09/20 06/09/20 08:30 08:30 WBC 8.4 RBC 4.74 Hgb 15.1 Hct 44.0 MCV 92.8 MCH 31.8 MCHC 34.2 RDW 15.0 Plt Count 193 MPV 8.6 Sodium 141 Potassium 3.8 Chloride 110 H Carbon Dioxide 22 Anion Gap 9 BUN 20.8 H Creatinine 1.0 Est GFR (CKD-EPI)AfAm 57.84 Est GFR (CKD-EPI)NonAf 49.91 Random Glucose 112 H Calcium 10.8 H Phosphorus 2.9 Magnesium 2.3 Current Medications Generic Name Dose Route Start Last Admin Trade Name Freq PRN Reason Stop Dose Admin Amlodipine Besylate 10 mg 06/04/20 20:45 06/09/20 09:09 Norvasc - PO 10 mg DAILY DENISE Administration Aspirin 81 mg 06/06/20 10:00 06/09/20 09:09 Asa - PO 81 mg DAILY DENISE Administration Azithromycin 1 drop 06/06/20 10:15 06/09/20 10:29 Azasite 1% Ophth Soln - OS 1 drop BID DENISE Administration Enoxaparin Sodium 40 mg 06/05/20 10:00 06/09/20 09:09 Lovenox - SQ 40 mg DAILY DENISE Administration Hydralazine HCl 10 mg 06/04/20 22:00 06/09/20 09:09 Apresoline - PO 10 mg BID DENISE Administration Ceftriaxone Sodium 1 gm/ 50 mls @ 100 mls/hr 06/05/20 10:00 06/09/20 09:09 Dextrose IVPB 100 mls/hr DAILY DENISE Administration Protocol Sodium Chloride 1,000 mls @ 75 mls/hr 06/08/20 15:41 06/08/20 20:52 1/2 Normal Saline IV 75 mls/hr ASDIR DENISE Administration Levothyroxine Sodium 125 mcg 06/05/20 17:49 06/09/20 06:04 Synthroid - PO 125 mcg DAILY@0700 DENISE Administration Lorazepam 0.5 mg 06/08/20 09:57 Ativan Injection - IM Q12H PRN AGITATION Memantine 5 mg 06/04/20 22:00 06/08/20 22:10 Namenda - PO 5 mg HS DENISE Administration Metoprolol Succinate 50 mg 06/04/20 22:00 06/09/20 09:09 Toprol Xl - PO 50 mg BID DENISE Administration Olanzapine 2.5 mg 06/05/20 22:00 06/09/20 09:09 Zyprexa - PO 2.5 mg BID DENISE Administration Home Medications Medication Instructions Recorded Amlodipine Besylate 10 mg PO DAILY 06/04/20 Hydralazine HCl 10 mg PO BID 06/04/20 Memantine HCl 5 mg PO HS 06/04/20 Metoprolol Succinate 50 mg PO BID 06/04/20 Potassium Chloride 10 meq PO DAILY 06/04/20 Aspirin Coated [Ecotrin -] 81 mg PO DAILY #30 tablet.ec 06/09/20 Azithromycin Ophth Soln [Azasite 1 drop OD BID 1 Days #2 drops 06/09/20 1% Ophth Soln -] Levothyroxine [Synthroid -] 125 mcg PO DAILY #30 tablet 06/09/20 Olanzapine [Zyprexa] 2.5 mg PO BID 30 Days #60 tablet 06/09/20 ASSESSMENT AND PLAN: 89 year old female with a history of Atrial Fibrillation, HTN, Hypothyroidism, Dementia, brought to ED by family members with increasing confusion, aggression, falls. 1. Acute Metabolic Encephalopathy atop baseline Dementia with behavioral disturbance secondary to UTI. Urine Cx - Ecoli - Day 5 Ceftriaxone Evaluated by Psychiatry - started on Zyprexa and Ativan PRN. Namenda resumed. Diet changed to dysphagia puree with thin liquids, ensure supplementation, meds in applesauce on recommendation of speech therapy. 2. Hypothyrosidism - TSH 52. Family confirms compliance with Synthroid - dose increased to 125mcg, 3. HTN - Continue Norvasc, Hydralazine, Toprol XL 4. Atrial fibrillation, rate controlled. Continue Toprol XL. Not on AC secondary to falls. 5. Cardiomegaly and increased bilateral interstitial markings. BNP elevated at 3642. Clinically no evidence of decompensated CHF. Echo shows LVH, EF 55%, Moderate MR, Moderate AR, Moderate to Severe TR, Moderate Pulmonary HTN. Cardio evaluated and recommended no further Ix/work-up/medication modification. 6. Cerebrovascular Disease - Chronic Infarcts on CT Head. No evidence of acute infarct or focal neurological signs. Will start Aspirin. Will hold off Statin due to advanced age, underlying dementia, and muscle weakness/recurrent falls. 7. Hypercalcemia, etiology unclear. Vitamin D deficient - level 5.1. Hyperparatyroid, Elevated PTH at 97. MM screen pending. IV hydration ongoing. Nephrology following. Will hold off Vitamin D supplementation for now in light of ongoing hypercalcemia. 8. Hypokalemia - recurrent, repleted. 9. Blepharitis, L lower eyelid - Topical Abx/Systemic Ceftriaxone. Improving. Medically Stable, cleared for discharge to [facility] by Nephrology. Will need close Nephrology follow up for Hypercalcemia/Hyperparatyroidism.
== END 2020-06-09 17:26 | DRG 689 ==
LOC: JER 16:35 → JERBED 19:55 → J8W 20:47
PROVIDERS: ADMIT Internal Medicine
DX: N39.0 Urinary tract infection, site not specified (principal); G93.41 Metabolic encephalopathy; I48.21 Permanent atrial fibrillation; F03.90 Unspecified dementia, unspecified severity, without behavioral disturbance, psychotic disturbance, mood disturbance, and anxiety; I10 Essential (primary) hypertension; E03.9 Hypothyroidism, unspecified; I48.91 Unspecified atrial fibrillation; E83.52 Hypercalcemia; E80.6 Other disorders of bilirubin metabolism; E86.0 Dehydration; I51.7 Cardiomegaly; I35.1 Nonrheumatic aortic (valve) insufficiency; I36.1 Nonrheumatic tricuspid (valve) insufficiency; E87.6 Hypokalemia; Z91.14 Patient's other noncompliance with medication regimen; H01.005 Unspecified blepharitis left lower eyelid; B96.20 Unspecified Escherichia coli [E. coli] as the cause of diseases classified elsewhere; I27.20 Pulmonary hypertension, unspecified
CPT/HCPCS: 36415; 70450-TC; 71045-TC-FY; 80048; 80053; 80307; 81003; 82248; 82306; 82550; 82565; 82607; 83735; 83880; 83883; 83970; 84100; 84155; 84156; 84165; 84436; 84439; 84443; 84484; 85025; 85027; 87086; 87186; 93005; 93010; 93306-TC; 97116-GP; 97161-GP; 99285-25; U0003